=== PATIENT | male | born 1935 | race Two or more races ===

== ENCOUNTER 2020-06-08 14:41 | Inpatient (IN) | payer MEDICARE, OTHER ==
[~2020-06-08] VITALS: Ht 182.9 cm; Wt 76.7 kg
--- NOTE | 2020-06-08 14:47 | Emergency Room Report ---
History of Present Illness General Chief Complaint: Altered Level of Consciousness Source: Patient Present Illness HPI Disclaimer: Please note that this report is being documented using DRAGON technology. This can lead to erroneous entry secondary to incorrect interpretation by the dictating instrument. HPI: 84-year-old male presents for evaluation of altered mental status. Patient arrives by EMS. They state he has a history of stage IV colon cancer unknown treatment. Laying in the backyard today and was difficult to arouse by family. EMS stated he could not be awakened with painful stimuli. On transfer he was given approximately 200 cc IV fluids and then woke up. He is only saying his name. Cannot provide any other information. Moving all extremities. PMH: Colon cancer PSH: Could not obtain from patient Allergies: Could not obtain from patient Social Hx: Could not obtain from patient Allergies: Coded Allergies: No Known Allergies (Unverified , 06/08/20) COVID-19 Screening Contact w/high risk pt: No Experienced COVID-19 symptoms?: No COVID-19 Testing performed OPAL MINER: No Nursing Documentation-PMH Past Medical History: No History, Except For Review of Systems All Other Systems: negative except mentioned in HPI Physical Exam Vital Signs Date Time Temp Pulse Resp B/P (MAP) Pulse Ox O2 Delivery O2 Flow Rate FiO2 06/08/20 14:37 98.6 78 22 85/20 (41) 96 Room Air General: Awake, confused, oriented to self HEENT: NC/AT. EOMI. dry mucous membranes Cardiovascular: RRR. S1 and S2 normal. No murmur appreciated Resp: Normal work of breathing. No cough, wheezing or crackles appreciated Abdomen: Abdomen is soft, nondistended. Nontender Skin: Intact. Bruising over the left shoulder, appears old. Blistering over the left ear consistent with a sunburn. No vesicles. No crusting MSK: Normal tone and bulk. Moving all extremities. No obvious deformity. Neuro: Awake, oriented x1, moving all extremities Medical Decision Making Diagnostic Impression: Primary Impression: Altered level of consciousness Additional Impressions: Anemia Fever ER Course 84-year-old male with history of colon cancer presents for evaluation of altered mental status and difficult to arouse. Patient is now awake though only telling us his name. He is confused though moving all extremities. No external signs of trauma appreciated. The bruising on his left arm appears to be from administration of medications and multiple IVs. Differential includes was not limited to intracranial bleed, cranial mass, seizure, heat exhaustion, heat stroke, electrolyte abnormality, dehydration, sepsis, encephalopathy, toxicologic among others. Stat CT head was sent but does not show intracranial mass or injury. EKG shows sinus arrhythmia and PACs. White count and lactate are elevated. Patient received Zosyn. Questionable infiltrate right lower lobe. Nonischemic EKG. Critically low hemoglobin at 6.6. Will arrange for transfusion. Chemistry otherwise within normal limits. Lactate improved with IV fluids. Mentation returned to baseline, he is now awake and alert. Tox screen negative, urinalysis unremarkable. D-dimer positive. No PE by CTA but pulmonary nodules are found. No pneumonia identified. Daughter is now present and states the patient has required transfusions for anemia in the past. He is in hospice for treatment of his cancer but she states she would want resuscitative efforts performed during his hospital stay. The patient admitted to panel physician, Dr. Pal. Sepsis reevaluation: I, Dr. Lev Sutherland, reevaluated the patient Capillary refill: Less than 2 seconds MAP: 67 Heart rate: 100 Respiratory rate: 16 Initial Lactate: 2.5 Repeat Lactate: 2.2 Pressors: Not indicated at this time No signs of fluid overload Laboratory Tests Test 06/08/20 15:00 06/08/20 16:25 White Blood Count 17.4 K/UL (4.8-10.8) H Red Blood Count 3.59 M/UL (4.70-6.10) L Hemoglobin 6.6 G/DL (14.2-18.0) *L Hematocrit 24.3 % (42.0-52.0) L Mean Corpuscular Volume 68 FL (80-99) L Mean Corpuscular Hemoglobin 18.4 PG (27.0-31.0) L Mean Corpuscular Hemoglobin Concent 27.1 G/DL (32.0-36.0) L Red Cell Distribution Width 15.9 % (11.6-14.8) H Platelet Count 396 K/UL (150-450) Mean Platelet Volume 5.0 FL (6.5-10.1) L Neutrophils (%) (Auto) % (45.0-75.0) Lymphocytes (%) (Auto) % (20.0-45.0) Monocytes (%) (Auto) % (1.0-10.0) Eosinophils (%) (Auto) % (0.0-3.0) Basophils (%) (Auto) % (0.0-2.0) Differential Total Cells Counted 100 Neutrophils % (Manual) 83 % (45-75) H Lymphocytes % (Manual) 9 % (20-45) L Monocytes % (Manual) 6 % (1-10) Eosinophils % (Manual) 1 % (0-3) Basophils % (Manual) 0 % (0-2) Metamyelocytes % 1 % (0-0) H Band Neutrophils 0 % (0-8) Platelet Estimate Adequate Platelet Morphology Normal Hypochromasia 3+ Anisocytosis 1+ Microcytosis 1+ Prothrombin Time 11.6 SEC (9.30-11.50) H Prothrombin Time INR 1.1 (0.9-1.1) Activated Partial Thromboplast Time 19 SEC (23-33) L D-Dimer 1.71 mg/L FEU (0.00-0.49) H Sodium Level 130 MMOL/L (136-145) L Potassium Level 4.2 MMOL/L (3.5-5.1) Chloride Level 99 MMOL/L (98-107) Carbon Dioxide Level 22 MMOL/L (21-32) Anion Gap 9 mmol/L (5-15) Blood Urea Nitrogen 11 mg/dL (7-18) Creatinine 1.1 MG/DL (0.55-1.30) Estimated Glomerular Filtration Rate > 60 mL/min (>60) Glucose Level 135 MG/DL (74-106) H Lactic Acid Level 2.50 mmol/L (0.4-2.0) H 2.20 mmol/L (0.66-2.22) Calcium Level 7.7 MG/DL (8.5-10.1) L Phosphorus Level 2.5 MG/DL (2.5-4.9) Magnesium Level 2.0 MG/DL (1.8-2.4) Ferritin 7 NG/ML (8-388) L Total Bilirubin 1.0 MG/DL (0.2-1.0) Aspartate Amino Transferase (AST) 17 U/L (15-37) Alanine Aminotransferase (ALT) 14 U/L (12-78) Alkaline Phosphatase 108 U/L (46-116) Lactate Dehydrogenase 163 U/L (81-234) Total Creatine Kinase 50 U/L (26-308) Creatine Kinase MB 2.2 NG/ML (0.0-3.6) Creatine Kinase MB Relative Index 4.4 Troponin I 0.011 ng/mL (0.000-0.056) C-Reactive Protein, Quantitative 3.5 mg/dL (0.00-0.90) H Pro-B-Type Natriuretic Peptide 565 pg/mL (0-125) H Total Protein 6.6 G/DL (6.4-8.2) Albumin 2.4 G/DL (3.4-5.0) L Globulin 4.2 g/dL Albumin/Globulin Ratio 0.6 (1.0-2.7) L Lipase 85 U/L (73-393) Serum Alcohol < 3 mg/dL Urine Color Yellow Urine Appearance Slightly cloudy Urine pH 6.5 (4.5-8.0) Urine Specific [place] 1.010 (1.005-1.035) Urine Protein 1+ (NEGATIVE) H Urine Glucose (UA) Negative (NEGATIVE) Urine Ketones Negative (NEGATIVE) Urine Blood 3+ (NEGATIVE) H Urine Nitrite Negative (NEGATIVE) Urine Bilirubin Negative (NEGATIVE) Urine Urobilinogen Normal MG/DL (0.0-1.0) Urine Leukocyte Esterase 1+ (NEGATIVE) H Urine RBC 2-4 /HPF (0 - 0) H Urine WBC 2-4 /HPF (0 - 0) Urine Squamous Epithelial Cells None /LPF (NONE/OCC) Urine Bacteria Few /HPF (NONE) Urine Opiates Screen Negative (NEGATIVE) Urine Barbiturates Screen Negative (NEGATIVE) Phencyclidine (PCP) Screen Negative (NEGATIVE) Urine Amphetamines Screen Negative (NEGATIVE) Urine Benzodiazepines Screen Negative (NEGATIVE) Urine Cocaine Screen Negative (NEGATIVE) Urine Marijuana (THC) Screen Negative (NEGATIVE) Microbiology Date/Time Source Procedure Growth Status 06/08/20 15:00 Nasopharynx SARS-CoV-2 RdRp Gene Assay - Final Complete EKG Diagnostic Results Troponin ordered: Yes When was troponin ordered?: Jun 08, 2020 EKG Time: 15:17 Rate: tachycardiac Rhythm: NSR ST Segments: no acute changes Other Impression Sinus rhythm, normal axis, normal intervals, QTC 428 ms, multiple PACs and sinus arrhythmia Rhythm Strip Diag. Results Rhythm Strip Time: 15:17 EP Interpretation: yes Rate: 100 Rhythm: no PVC's, other - Premature atrial complexes and sinus arrhythmia Chest X-Ray Diagnostic Results Chest X-Ray Diagnostic Results : Chest X-Ray Ordered: Yes # of Views/Limited/Complete: 1 View Indication: Other - Altered mental status EP Interpretation: Yes Interpretation: no effusion, no pneumothorax, other - Possible consolidation right lower lobe Impression: Other - Early infiltrate versus edema right lower lobe Electronically Signed by: Electronically signed by Dr. Lev Sutherland MD Last Vital Signs Date Time Temp Pulse Resp B/P (MAP) Pulse Ox O2 Delivery O2 Flow Rate FiO2 06/08/20 14:37 98.6 78 22 85/20 (41) 96 Room Air Disposition: ADMITTED INPATIENT Condition: Serious Lev Sutherland MD Jun 08, 2020 14:47
[2020-06-08 15:04] VITALS: BP 85/20
[2020-06-08 15:26] LABS: INR 1.1 (0.9-1.1)
[2020-06-08 15:27] LABS: HEMATOCRIT 24.3 % (42.0-52.0); MEAN CORPUSCULAR VOLUME 68 FL (80-99); PLATELET COUNT 396 K/UL (150-450); RED BLOOD COUNT 3.59 M/UL (4.70-6.10); RED CELL DISTRIBUTION WIDTH 15.9 % (11.6-14.8); WHITE BLOOD COUNT 17.4 K/UL (4.8-10.8)
[2020-06-08 15:37] LABS: ANION GAP 9 mmol/L (5-15); BLOOD UREA NITROGEN 11 mg/dL (7-18); CALCIUM 7.7 MG/DL (8.5-10.1); CARBON DIOXIDE 22 MMOL/L (21-32); CHLORIDE 99 MMOL/L (98-107); CREATININE 1.1 MG/DL (0.55-1.30); POTASSIUM 4.2 MMOL/L (3.5-5.1); SODIUM 130 MMOL/L (136-145)
[2020-06-08 15:42] LABS: HEMOGLOBIN 6.6 G/DL (14.2-18.0)
[2020-06-08] MEDS ORDERED: LEVOTHYROXINE125 MCG ORAL (15:43)
[2020-06-08] MEDS ORDERED: HYDROMORPHO PO (15:43)
[2020-06-08] MEDS ORDERED: Omnipaque 350 100ml vial INJ PRN (15:45)
[2020-06-08] MEDS ORDERED: Piperacillin/Tazobactam 3.375 GM in NS 110 ML IVPB ONE (15:45)
--- NOTE | 2020-06-08 15:47 | Diagnostic Imaging Report ---
EXAM: CT Head Without Intravenous Contrast CLINICAL HISTORY: MASS TECHNIQUE: Axial computed tomography images of the head/brain without intravenous contrast. CTDI is 53.4 mGy and DLP is 1074.0 mGy-cm. One or more of the following dose reduction techniques were used: automated exposure control, adjustment of the mA and/or kV according to patient size, use of iterative reconstruction technique. COMPARISON: No relevant prior studies available. FINDINGS: Brain: No acute intracranial hemorrhage, large hypodensity, or significant mass effect. Nonspecific areas of hypoattenuation in the periventricular white matter likely represent the sequela of chronic small vessel ischemic disease. Ventricles: Ventricular and sulcal prominence commensurate with the patient's age. Bones/joints: No acute abnormality. Soft tissues: No significant abnormality. Sinuses: No significant abnormality. Mastoid air cells: No significant abnormality. IMPRESSION: No acute intracranial abnormality. No mass. MRI of the brain with and without contrast would be more sensitive to evaluate for an intracranial mass.
[2020-06-08 15:52] LABS: ALANINE AMINOTRANSFERASE 14 U/L (12-78); ALBUMIN 2.4 G/DL (3.4-5.0); ALBUMIN/GLOBULIN RATIO 0.6 (1.0-2.7); ALKALINE PHOSPHATASE 108 U/L (46-116); ASPARTATE AMINO TRANSFERASE 17 U/L (15-37); CKMB 2.2 NG/ML (0.0-3.6); CREATINE KINASE 50 U/L (26-308); FERRITIN 7 NG/ML (8-388); LACTATE DEHYDROGENASE 163 U/L (81-234); PHOSPHORUS 2.5 MG/DL (2.5-4.9)
[2020-06-08 16:00] VITALS: BP 117/58
[2020-06-08] MEDS ORDERED: Acetaminophen 500mg (ES) tab ORAL ONE (16:00)
--- NOTE | 2020-06-08 16:13 | Diagnostic Imaging Report ---
EXAM: XR Chest, 1 View CLINICAL HISTORY: AMS TECHNIQUE: Frontal view of the chest. COMPARISON: No relevant prior studies available. FINDINGS: Lungs: Hypoventilatory lungs. Nonspecific bibasilar opacities. Pleural space: . No significant pleural effusions or pneumothorax. Heart: No significant abnormality. No cardiomegaly. Mediastinum: No significant abnormality. Bones/joints: No acute osseous abnormality. IMPRESSION: Hypoventilatory lungs. Nonspecific bibasilar opacities may represent atelectasis or an infectious or inflammatory process. No significant pleural effusions or pneumothorax.
[2020-06-08 16:44] LABS: BILIRUBIN, URINE NEGATIVE (NEGATIVE); COLOR,URINE YELLOW; GLUCOSE, URINE (UA) NEGATIVE (NEGATIVE); KETONES,URINE NEGATIVE (NEGATIVE); LEUKOCYTE ESTERASE ,URINE 1+ (NEGATIVE); NITRITE,URINE NEGATIVE (NEGATIVE); PH,URINE 6.5 (4.5-8.0); PROTEIN,URINE 1+ (NEGATIVE); UROBILINOGEN,URINE NORMAL MG/DL (0.0-1.0)
[2020-06-08 16:55] LABS: APPEARANCE,URINE SLIGHTLY CLOUDY
[2020-06-08 16:57] VITALS: BP 125/47
--- NOTE | 2020-06-08 17:35 | Diagnostic Imaging Report ---
EXAM: CT Angiography Chest With Intravenous Contrast CLINICAL HISTORY: AMS TECHNIQUE: Axial computed tomographic angiography images of the chest with intravenous contrast. CTDI is 34.2 mGy and DLP is 246.1 mGy-cm. One or more of the following dose reduction techniques were used: automated exposure control, adjustment of the mA and/or kV according to patient size, use of iterative reconstruction technique. MIP reconstructed images were created and reviewed. COMPARISON: No relevant prior studies available. FINDINGS: Artifacts: Motion. Pulmonary arteries: No pulmonary embolism. Aorta: Aortic atherosclerosis. No thoracic aortic aneurysm or dissection. Lungs: Bilateral emphysematous changes and mild peribronchial thickening. 1.5 cm pleural-based nodule in the anterior liver left upper lobe. 1.9 cm pleural-based cavitary nodule in the right lower lobe. Pleural space: No significant abnormality. No significant effusion. No pneumothorax. Heart: No cardiomegaly. No significant pericardial effusion. Bones/joints: No acute fracture. Soft tissues: No significant abnormality. Lymph nodes: No significant abnormality. No enlarged lymph nodes. IMPRESSION: 1. Indeterminate bilateral pleural-based nodules measuring up to 1.9 cm in the right lower lobe. Fleischner Society Guidelines for low-risk patients recommend follow-up chest CT at 3-6 months. If unchanged consider an additional follow-up CT at 18-24 months. For high-risk patients (smoking history or other known risk factors) initial follow-up chest CT at 3-6 months and if unchanged, 18-24 months. 2. No pulmonary embolus.
[2020-06-08 18:47] VITALS: BP 122/50
--- NOTE | 2020-06-08 19:15 | Cardiac Electrophysiology PN ---
Subjective Subjective Patient seen in ER and [facility] ER MD Consult dictated Objective Last 24 Hour Vital Signs Date Time Temp Pulse Resp B/P (MAP) Pulse Ox O2 Delivery O2 Flow Rate FiO2 06/08/20 18:47 98.8 97 21 122/50 99 Room Air 06/08/20 16:57 98.8 97 21 125/47 99 Room Air 06/08/20 16:55 98.8 06/08/20 16:00 100.5 110 22 117/58 99 Room Air 06/08/20 15:08 78 22 Room Air 06/08/20 15:04 100.5 22 85/20 96 Room Air 06/08/20 14:37 98.6 78 22 85/20 (41) 96 Room Air Laboratory Tests Test 06/08/20 15:00 06/08/20 16:25 White Blood Count 17.4 K/UL (4.8-10.8) H Red Blood Count 3.59 M/UL (4.70-6.10) L Hemoglobin 6.6 G/DL (14.2-18.0) *L Hematocrit 24.3 % (42.0-52.0) L Mean Corpuscular Volume 68 FL (80-99) L Mean Corpuscular Hemoglobin 18.4 PG (27.0-31.0) L Mean Corpuscular Hemoglobin Concent 27.1 G/DL (32.0-36.0) L Red Cell Distribution Width 15.9 % (11.6-14.8) H Platelet Count 396 K/UL (150-450) Mean Platelet Volume 5.0 FL (6.5-10.1) L Neutrophils (%) (Auto) % (45.0-75.0) Lymphocytes (%) (Auto) % (20.0-45.0) Monocytes (%) (Auto) % (1.0-10.0) Eosinophils (%) (Auto) % (0.0-3.0) Basophils (%) (Auto) % (0.0-2.0) Differential Total Cells Counted 100 Neutrophils % (Manual) 83 % (45-75) H Lymphocytes % (Manual) 9 % (20-45) L Monocytes % (Manual) 6 % (1-10) Eosinophils % (Manual) 1 % (0-3) Basophils % (Manual) 0 % (0-2) Metamyelocytes % 1 % (0-0) H Band Neutrophils 0 % (0-8) Platelet Estimate Adequate Platelet Morphology Normal Hypochromasia 3+ Anisocytosis 1+ Microcytosis 1+ Prothrombin Time 11.6 SEC (9.30-11.50) H Prothromb Time International Ratio 1.1 (0.9-1.1) Activated Partial Thromboplast Time 19 SEC (23-33) L D-Dimer 1.71 mg/L FEU (0.00-0.49) H Sodium Level 130 MMOL/L (136-145) L Potassium Level 4.2 MMOL/L (3.5-5.1) Chloride Level 99 MMOL/L (98-107) Carbon Dioxide Level 22 MMOL/L (21-32) Anion Gap 9 mmol/L (5-15) Blood Urea Nitrogen 11 mg/dL (7-18) Creatinine 1.1 MG/DL (0.55-1.30) Estimat Glomerular Filtration Rate > 60 mL/min (>60) Glucose Level 135 MG/DL (74-106) H Lactic Acid Level 2.50 mmol/L (0.4-2.0) H 2.20 mmol/L (0.66-2.22) Calcium Level 7.7 MG/DL (8.5-10.1) L Phosphorus Level 2.5 MG/DL (2.5-4.9) Magnesium Level 2.0 MG/DL (1.8-2.4) Ferritin 7 NG/ML (8-388) L Total Bilirubin 1.0 MG/DL (0.2-1.0) Aspartate Amino Transf (AST/SGOT) 17 U/L (15-37) Alanine Aminotransferase (ALT/SGPT) 14 U/L (12-78) Alkaline Phosphatase 108 U/L (46-116) Lactate Dehydrogenase 163 U/L (81-234) Total Creatine Kinase 50 U/L (26-308) Creatine Kinase MB 2.2 NG/ML (0.0-3.6) Creatine Kinase MB Relative Index 4.4 Troponin I 0.011 ng/mL (0.000-0.056) C-Reactive Protein, Quantitative 3.5 mg/dL (0.00-0.90) H Pro-B-Type Natriuretic Peptide 565 pg/mL (0-125) H Total Protein 6.6 G/DL (6.4-8.2) Albumin 2.4 G/DL (3.4-5.0) L Globulin 4.2 g/dL Albumin/Globulin Ratio 0.6 (1.0-2.7) L Lipase 85 U/L (73-393) Serum Alcohol < 3 mg/dL Urine Color Yellow Urine Appearance Slightly cloudy Urine pH 6.5 (4.5-8.0) Urine Specific [place] 1.010 (1.005-1.035) Urine Protein 1+ (NEGATIVE) H Urine Glucose (UA) Negative (NEGATIVE) Urine Ketones Negative (NEGATIVE) Urine Blood 3+ (NEGATIVE) H Urine Nitrite Negative (NEGATIVE) Urine Bilirubin Negative (NEGATIVE) Urine Urobilinogen Normal MG/DL (0.0-1.0) Urine Leukocyte Esterase 1+ (NEGATIVE) H Urine RBC 2-4 /HPF (0 - 0) H Urine WBC 2-4 /HPF (0 - 0) Urine Squamous Epithelial Cells None /LPF (NONE/OCC) Urine Bacteria Few /HPF (NONE) Urine Opiates Screen Negative (NEGATIVE) Urine Barbiturates Screen Negative (NEGATIVE) Phencyclidine (PCP) Screen Negative (NEGATIVE) Urine Amphetamines Screen Negative (NEGATIVE) Urine Benzodiazepines Screen Negative (NEGATIVE) Urine Cocaine Screen Negative (NEGATIVE) Urine Marijuana (THC) Screen Negative (NEGATIVE) Microbiology Date/Time Source Procedure Growth Status 06/08/20 15:00 Nasopharynx SARS-CoV-2 RdRp Gene Assay - Final Complete Frank Gilbert MD Jun 08, 2020 19:15
[2020-06-08 20:25] VITALS: BP 131/50
--- NOTE | 2020-06-08 21:00 | Consultation ---
DATE OF CONSULTATION: 06/08/2020 CARDIOLOGY CONSULTATION CONSULTING PHYSICIAN: Frank Gilbert MD REFERRING PHYSICIAN: Veronica Pal MD REASON FOR CONSULTATION: Hypotension. HISTORY OF PRESENT ILLNESS: Patient is an 84-year-old gentleman with history of stage IV colon cancer, but unknown treatment, was brought to the emergency room for altered mental status. Patient currently was lying in the backyard and was difficult to arouse by the family. EMS could not awaken the patient with painful stimuli. On transfer, patient received 20 mL normal saline and he woke up. Patient initially was confused, but gradually improved. At the time of my evaluation, patient is in the emergency room. He is alert and oriented x3 and is getting blood transfusion for his profound anemia. His blood pressure in the ER was 85/20 with a pulse of 78. REVIEW OF SYSTEMS: Negative other than what was mentioned in history of present illness. PAST MEDICAL HISTORY: As mentioned above. FAMILY HISTORY: Noncontributory. SOCIAL HISTORY: He lives at home with the family. PHYSICAL EXAMINATION: VITAL SIGNS: Blood pressure is 100/60, pulse is 90, respirations 18, and he is afebrile. HEAD AND NECK: Showed no JVD. LUNGS: Clear. CARDIOVASCULAR: Shows regular S1 and S2 with no gallop or murmur. ABDOMEN: Soft. EXTREMITIES: No pitting edema. LABORATORY AND DIAGNOSTIC DATA: His labs show white count of 17.4. His EKG showed sinus rhythm with nonspecific ST-T wave abnormalities. ASSESSMENT AND PLAN: 1. Hypotension, likely due to profound anemia. Patient already getting blood transfusion. Patient was also started on IV antibiotic. Patient may need pressors if the blood pressure does not get better after IV fluids as well as blood transfusion. 2. History of colon cancer and anemia. Patient will have colon surgery. His treatment is not clear at this point. 3. Nonspecific ST-T wave abnormality. We will completely rule out HI protocol and get an echocardiogram for further evaluation and management. Thank you very much, Dr. Pal, for allowing me to participate in the care of this patient. Please do not hesitate to contact me for any questions regarding my evaluation. The case was discussed with the emergency room physician as well. Frank Gilbert M.D. DR: EMORY JOB#: [id number] CC:
[2020-06-08] MEDS ORDERED: Acetaminophen 500mg (ES) tab ORAL PRN (23:45)
[2020-06-09] VITALS: BP 140/74
[2020-06-09 04:00] VITALS: BP 117/78
[2020-06-09] MEDS: Levothyroxine 125mcg tab ORAL SCH (05:48)
[2020-06-09 05:52] LABS: HEMATOCRIT 28.1 % (42.0-52.0); HEMOGLOBIN 7.9 G/DL (14.2-18.0); MEAN CORPUSCULAR VOLUME 70 FL (80-99); PLATELET COUNT 374 K/UL (150-450); RED CELL DISTRIBUTION WIDTH 18.5 % (11.6-14.8); WHITE BLOOD COUNT 11.8 K/UL (4.8-10.8)
[2020-06-09 06:41] LABS: ALANINE AMINOTRANSFERASE 29 U/L (12-78); ALBUMIN 2.2 G/DL (3.4-5.0); ALBUMIN/GLOBULIN RATIO 0.5 (1.0-2.7); ALKALINE PHOSPHATASE 107 U/L (46-116); ANION GAP 6 mmol/L (5-15); ASPARTATE AMINO TRANSFERASE 50 U/L (15-37); BILIRUBIN,TOTAL 0.7 MG/DL (0.2-1.0); BLOOD UREA NITROGEN 12 mg/dL (7-18); CALCIUM 7.6 MG/DL (8.5-10.1); CARBON DIOXIDE 26 MMOL/L (21-32); CHLORIDE 101 MMOL/L (98-107); CREATININE 0.9 MG/DL (0.55-1.30); POTASSIUM 3.5 MMOL/L (3.5-5.1); SODIUM 133 MMOL/L (136-145)
--- NOTE | 2020-06-09 06:57 | Consultation ---
History of Present Illness General Chief Complaint: Altered Level of Consciousness Present Illness Allergies: Coded Allergies: No Known Allergies (Unverified , 06/08/20) Medication History Scheduled Levothyroxine Sodium* (Levothyroxine Sodium*), 137 MCG ORAL DAILY, (Reported) Miscellaneous Medications Hydromorphone HCl/Pf (Hydromorphone 4 mg/ml Vial), 4 MG PO, (Reported) Patient History Healthcare decision maker N Resuscitation status Advanced Directive on File Physical Exam Last 24 Hour Vital Signs Date Time Temp Pulse Resp B/P (MAP) Pulse Ox O2 Delivery O2 Flow Rate FiO2 06/09/20 04:00 Room Air 06/09/20 04:00 96.8 78 18 117/78 (91) 98 06/09/20 04:00 103 06/09/20 00:00 97.0 83 18 140/74 (96) 98 06/09/20 00:00 109 06/09/20 00:00 2.0 06/09/20 00:00 Room Air 06/08/20 21:00 Room Air 06/08/20 20:25 98.2 98 16 131/50 (77) 100 06/08/20 20:23 98.8 97 21 122/50 99 Room Air 06/08/20 18:47 98.8 97 21 122/50 99 Room Air 06/08/20 16:57 98.8 97 21 125/47 99 Room Air 06/08/20 16:55 98.8 06/08/20 16:00 100.5 110 22 117/58 99 Room Air 06/08/20 15:08 78 22 Room Air 06/08/20 15:04 100.5 22 85/20 96 Room Air 06/08/20 14:37 98.6 78 22 85/20 (41) 96 Room Air Intake and Output 06/08/20 06/09/20 19:00 07:00 Intake Total 120 ml 620 ml Output Total 600 ml Balance 120 ml 20 ml Intake Oral 120 ml 620 ml Output Urine Total 600 ml # Bowel Movements 1 Laboratory Tests Test 06/08/20 15:00 06/08/20 16:25 06/09/20 03:48 White Blood Count 17.4 K/UL (4.8-10.8) H 11.8 K/UL (4.8-10.8) H Red Blood Count 3.59 M/UL (4.70-6.10) L 4.00 M/UL (4.70-6.10) L Hemoglobin 6.6 G/DL (14.2-18.0) *L 7.9 G/DL (14.2-18.0) L Hematocrit 24.3 % (42.0-52.0) L 28.1 % (42.0-52.0) L Mean Corpuscular Volume 68 FL (80-99) L 70 FL (80-99) L Mean Corpuscular Hemoglobin 18.4 PG (27.0-31.0) L 19.9 PG (27.0-31.0) L Mean Corpuscular Hemoglobin Concent 27.1 G/DL (32.0-36.0) L 28.3 G/DL (32.0-36.0) L Red Cell Distribution Width 15.9 % (11.6-14.8) H 18.5 % (11.6-14.8) H Platelet Count 396 K/UL (150-450) 374 K/UL (150-450) Mean Platelet Volume 5.0 FL (6.5-10.1) L 5.0 FL (6.5-10.1) L Neutrophils (%) (Auto) % (45.0-75.0) % (45.0-75.0) Lymphocytes (%) (Auto) % (20.0-45.0) % (20.0-45.0) Monocytes (%) (Auto) % (1.0-10.0) % (1.0-10.0) Eosinophils (%) (Auto) % (0.0-3.0) % (0.0-3.0) Basophils (%) (Auto) % (0.0-2.0) % (0.0-2.0) Differential Total Cells Counted 100 Neutrophils % (Manual) 83 % (45-75) H Pending Lymphocytes % (Manual) 9 % (20-45) L Pending Monocytes % (Manual) 6 % (1-10) Eosinophils % (Manual) 1 % (0-3) Basophils % (Manual) 0 % (0-2) Metamyelocytes % 1 % (0-0) H Band Neutrophils 0 % (0-8) Platelet Estimate Adequate Pending Platelet Morphology Normal Pending Hypochromasia 3+ Anisocytosis 1+ Microcytosis 1+ Prothrombin Time 11.6 SEC (9.30-11.50) H Prothromb Time International Ratio 1.1 (0.9-1.1) Activated Partial Thromboplast Time 19 SEC (23-33) L D-Dimer 1.71 mg/L FEU (0.00-0.49) H Sodium Level 130 MMOL/L (136-145) L 133 MMOL/L (136-145) L Potassium Level 4.2 MMOL/L (3.5-5.1) 3.5 MMOL/L (3.5-5.1) Chloride Level 99 MMOL/L (98-107) 101 MMOL/L (98-107) Carbon Dioxide Level 22 MMOL/L (21-32) 26 MMOL/L (21-32) Anion Gap 9 mmol/L (5-15) 6 mmol/L (5-15) Blood Urea Nitrogen 11 mg/dL (7-18) 12 mg/dL (7-18) Creatinine 1.1 MG/DL (0.55-1.30) 0.9 MG/DL (0.55-1.30) Estimat Glomerular Filtration Rate > 60 mL/min (>60) > 60 mL/min (>60) Glucose Level 135 MG/DL (74-106) H 136 MG/DL (74-106) H Lactic Acid Level 2.50 mmol/L (0.4-2.0) H 2.20 mmol/L (0.66-2.22) Calcium Level 7.7 MG/DL (8.5-10.1) L 7.6 MG/DL (8.5-10.1) L Phosphorus Level 2.5 MG/DL (2.5-4.9) Magnesium Level 2.0 MG/DL (1.8-2.4) Ferritin 7 NG/ML (8-388) L Total Bilirubin 1.0 MG/DL (0.2-1.0) 0.7 MG/DL (0.2-1.0) Aspartate Amino Transf (AST/SGOT) 17 U/L (15-37) 50 U/L (15-37) H Alanine Aminotransferase (ALT/SGPT) 14 U/L (12-78) 29 U/L (12-78) Alkaline Phosphatase 108 U/L (46-116) 107 U/L (46-116) Lactate Dehydrogenase 163 U/L (81-234) Total Creatine Kinase 50 U/L (26-308) Creatine Kinase MB 2.2 NG/ML (0.0-3.6) Creatine Kinase MB Relative Index 4.4 Troponin I 0.011 ng/mL (0.000-0.056) 0.085 ng/mL (0.000-0.056) C-Reactive Protein, Quantitative 3.5 mg/dL (0.00-0.90) H Pro-B-Type Natriuretic Peptide 565 pg/mL (0-125) H 928 pg/mL (0-125) H Total Protein 6.6 G/DL (6.4-8.2) 6.3 G/DL (6.4-8.2) L Albumin 2.4 G/DL (3.4-5.0) L 2.2 G/DL (3.4-5.0) L Globulin 4.2 g/dL 4.1 g/dL Albumin/Globulin Ratio 0.6 (1.0-2.7) L 0.5 (1.0-2.7) L Lipase 85 U/L (73-393) Serum Alcohol < 3 mg/dL Urine Color Yellow Urine Appearance Slightly cloudy Urine pH 6.5 (4.5-8.0) Urine Specific [place] 1.010 (1.005-1.035) Urine Protein 1+ (NEGATIVE) H Urine Glucose (UA) Negative (NEGATIVE) Urine Ketones Negative (NEGATIVE) Urine Blood 3+ (NEGATIVE) H Urine Nitrite Negative (NEGATIVE) Urine Bilirubin Negative (NEGATIVE) Urine Urobilinogen Normal MG/DL (0.0-1.0) Urine Leukocyte Esterase 1+ (NEGATIVE) H Urine RBC 2-4 /HPF (0 - 0) H Urine WBC 2-4 /HPF (0 - 0) Urine Squamous Epithelial Cells None /LPF (NONE/OCC) Urine Bacteria Few /HPF (NONE) Urine Opiates Screen Negative (NEGATIVE) Urine Barbiturates Screen Negative (NEGATIVE) Phencyclidine (PCP) Screen Negative (NEGATIVE) Urine Amphetamines Screen Negative (NEGATIVE) Urine Benzodiazepines Screen Negative (NEGATIVE) Urine Cocaine Screen Negative (NEGATIVE) Urine Marijuana (THC) Screen Negative (NEGATIVE) Thyroid Stimulating Hormone (TSH) < 0.010 uiU/mL (0.358-3.740) Free Thyroxine 1.51 NG/DL (0.76-1.46) H Microbiology Date/Time Source Procedure Growth Status 06/08/20 15:00 Nasopharynx SARS-CoV-2 RdRp Gene Assay - Final Complete Height (Feet): 6 Height (Inches): 1.00 Weight (Pounds): 169 Medications Current Medications Medications (Trade) Dose Ordered Sig/[place] Route PRN Reason Start Time Stop Time Status Last Admin Dose Admin Acetaminophen (Tylenol) 500 mg Q4H PRN ORAL Mild Pain (Pain Scale 1-3) 06/08/20 23:45 07/08/20 23:44 Iohexol (Omnipaque 350 100ml) 100 ml NOW PRN INJ Radiology Procedure 06/08/20 15:45 06/10/20 15:44 Levothyroxine Sodium (Synthroid) 125 mcg DAILY@0630 ORAL 06/09/20 06:30 07/09/20 06:29 06/09/20 05:48 Assessment/Plan Assessment/Plan: Hematology Consultation REQ MD: Veronica Wetzel RFC: Malignancy eval DOS: 06/09/2020 HPI: 84-year-old male presents for evaluation of altered mental status. Patient arrives by EMS. They state he has a history of stage IV colon cancer unknown treatment. Laying in the backyard today and was difficult to arouse by family. EMS stated he could not be awakened with painful stimuli. On transfer he was given approximately 200 cc IV fluids and then woke up. He is only saying his name. Cannot provide any other information. Moving all extremities. Seen by cardiology, recs noted, cea ordered, he does not want treatment for cancer at this time. 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 EOMI. dry mucous membranes Cardiovascular: RRR. S1 and S2 normal. No murmur appreciated Resp: Normal work of breathing. No cough, wheezing or crackles appreciated Abdomen: Abdomen is soft, nondistended. Nontender Skin: Intact. Bruising over the left shoulder, appears old. Blistering over the left ear consistent with a sunburn MSK: Normal tone and bulk. Moving all extremities. No obvious deformity. Neuro: Awake, oriented x1, moving all extremities Labs; noted Meds: reviewed Assessment and Recs # Stage IV colon cancer -- I talked with him 06/09 and he is aware of diagnosis but does not want any treatment --> aware of risks and detriment of not getting treatmet for a disease that has potentially 24-30month survival --> is aware of above, cea ordered # Indeterminate bilateral pleural-based nodules measuring up to 1.9 cm in the right lower lobe. --> may be related to above malignancy --> hold off significant workup # Anemia likely due to gi bleed v from neoplasm --> anemia panel order prn --> transfuse as needed --> hgb 6.6-->7.9 # Altered level of consciousness --> r.o underlying infection --> ct brain noted --> neuro recs # Questionable infiltrate rll, with Fever -> r/o infection --> abx Appreciate consultation and dw Froilan Rodriguez MD Jun 09, 2020 06:57
[2020-06-09 08:00] VITALS: BP 129/70
--- NOTE | 2020-06-09 11:21 | Cardiac Electrophysiology PN ---
Assessment/Plan Assessment/Plan 1. Hypotension, likely due to profound anemia. Got blood transfusion. Patient was also started on IV antibiotic. Off aspirin. Add Toprol 25 daily 2. Anemia with Hb 6.6 and Stage IV colon cancer . He is aware of diagnosis but does not want any treatment Never had colon surgery.FU Dr Ewing 3. NSTEMI with elevated troponin and Nonspecific ST-T wave abnormality. Could be due to demand ischemia in view of Hb 6.6. No CP. Subjective Subjective Alert in NAD.No CP or SOB Objective Last 24 Hour Vital Signs Date Time Temp Pulse Resp B/P (MAP) Pulse Ox O2 Delivery O2 Flow Rate FiO2 06/09/20 04:00 Room Air 06/09/20 04:00 96.8 78 18 117/78 (91) 98 06/09/20 04:00 103 06/09/20 00:00 97.0 83 18 140/74 (96) 98 06/09/20 00:00 109 06/09/20 00:00 2.0 06/09/20 00:00 Room Air 06/08/20 21:00 Room Air 06/08/20 20:25 98.2 98 16 131/50 (77) 100 06/08/20 20:23 98.8 97 21 122/50 99 Room Air 06/08/20 18:47 98.8 97 21 122/50 99 Room Air 06/08/20 16:57 98.8 97 21 125/47 99 Room Air 06/08/20 16:55 98.8 06/08/20 16:00 100.5 110 22 117/58 99 Room Air 06/08/20 15:08 78 22 Room Air 06/08/20 15:04 100.5 22 85/20 96 Room Air 06/08/20 14:37 98.6 78 22 85/20 (41) 96 Room Air Intake and Output 06/08/20 06/09/20 19:00 07:00 Intake Total 120 ml 620 ml Output Total 600 ml Balance 120 ml 20 ml Intake Oral 120 ml 620 ml Output Urine Total 600 ml # Bowel Movements 1 Laboratory Tests Test 06/08/20 15:00 06/08/20 16:25 06/09/20 03:48 White Blood Count 17.4 K/UL (4.8-10.8) H 11.8 K/UL (4.8-10.8) H Red Blood Count 3.59 M/UL (4.70-6.10) L 4.00 M/UL (4.70-6.10) L Hemoglobin 6.6 G/DL (14.2-18.0) *L 7.9 G/DL (14.2-18.0) L Hematocrit 24.3 % (42.0-52.0) L 28.1 % (42.0-52.0) L Mean Corpuscular Volume 68 FL (80-99) L 70 FL (80-99) L Mean Corpuscular Hemoglobin 18.4 PG (27.0-31.0) L 19.9 PG (27.0-31.0) L Mean Corpuscular Hemoglobin Concent 27.1 G/DL (32.0-36.0) L 28.3 G/DL (32.0-36.0) L Red Cell Distribution Width 15.9 % (11.6-14.8) H 18.5 % (11.6-14.8) H Platelet Count 396 K/UL (150-450) 374 K/UL (150-450) Mean Platelet Volume 5.0 FL (6.5-10.1) L 5.0 FL (6.5-10.1) L Neutrophils (%) (Auto) % (45.0-75.0) % (45.0-75.0) Lymphocytes (%) (Auto) % (20.0-45.0) % (20.0-45.0) Monocytes (%) (Auto) % (1.0-10.0) % (1.0-10.0) Eosinophils (%) (Auto) % (0.0-3.0) % (0.0-3.0) Basophils (%) (Auto) % (0.0-2.0) % (0.0-2.0) Differential Total Cells Counted 100 100 Neutrophils % (Manual) 83 % (45-75) H 71 % (45-75) Lymphocytes % (Manual) 9 % (20-45) L 17 % (20-45) L Monocytes % (Manual) 6 % (1-10) 11 % (1-10) H Eosinophils % (Manual) 1 % (0-3) 1 % (0-3) Basophils % (Manual) 0 % (0-2) 0 % (0-2) Metamyelocytes % 1 % (0-0) H Band Neutrophils 0 % (0-8) 0 % (0-8) Platelet Estimate Adequate Adequate Platelet Morphology Normal Normal Hypochromasia 3+ 2+ Anisocytosis 1+ 2+ Microcytosis 1+ 1+ Prothrombin Time 11.6 SEC (9.30-11.50) H Prothromb Time International Ratio 1.1 (0.9-1.1) Activated Partial Thromboplast Time 19 SEC (23-33) L D-Dimer 1.71 mg/L FEU (0.00-0.49) H Sodium Level 130 MMOL/L (136-145) L 133 MMOL/L (136-145) L Potassium Level 4.2 MMOL/L (3.5-5.1) 3.5 MMOL/L (3.5-5.1) Chloride Level 99 MMOL/L (98-107) 101 MMOL/L (98-107) Carbon Dioxide Level 22 MMOL/L (21-32) 26 MMOL/L (21-32) Anion Gap 9 mmol/L (5-15) 6 mmol/L (5-15) Blood Urea Nitrogen 11 mg/dL (7-18) 12 mg/dL (7-18) Creatinine 1.1 MG/DL (0.55-1.30) 0.9 MG/DL (0.55-1.30) Estimat Glomerular Filtration Rate > 60 mL/min (>60) > 60 mL/min (>60) Glucose Level 135 MG/DL (74-106) H 136 MG/DL (74-106) H Lactic Acid Level 2.50 mmol/L (0.4-2.0) H 2.20 mmol/L (0.66-2.22) Calcium Level 7.7 MG/DL (8.5-10.1) L 7.6 MG/DL (8.5-10.1) L Phosphorus Level 2.5 MG/DL (2.5-4.9) Magnesium Level 2.0 MG/DL (1.8-2.4) Ferritin 7 NG/ML (8-388) L Total Bilirubin 1.0 MG/DL (0.2-1.0) 0.7 MG/DL (0.2-1.0) Aspartate Amino Transf (AST/SGOT) 17 U/L (15-37) 50 U/L (15-37) H Alanine Aminotransferase (ALT/SGPT) 14 U/L (12-78) 29 U/L (12-78) Alkaline Phosphatase 108 U/L (46-116) 107 U/L (46-116) Lactate Dehydrogenase 163 U/L (81-234) Total Creatine Kinase 50 U/L (26-308) Creatine Kinase MB 2.2 NG/ML (0.0-3.6) Creatine Kinase MB Relative Index 4.4 Troponin I 0.011 ng/mL (0.000-0.056) 0.085 ng/mL (0.000-0.056) C-Reactive Protein, Quantitative 3.5 mg/dL (0.00-0.90) H Pro-B-Type Natriuretic Peptide 565 pg/mL (0-125) H 928 pg/mL (0-125) H Total Protein 6.6 G/DL (6.4-8.2) 6.3 G/DL (6.4-8.2) L Albumin 2.4 G/DL (3.4-5.0) L 2.2 G/DL (3.4-5.0) L Globulin 4.2 g/dL 4.1 g/dL Albumin/Globulin Ratio 0.6 (1.0-2.7) L 0.5 (1.0-2.7) L Lipase 85 U/L (73-393) Serum Alcohol < 3 mg/dL Urine Color Yellow Urine Appearance Slightly cloudy Urine pH 6.5 (4.5-8.0) Urine Specific [place] 1.010 (1.005-1.035) Urine Protein 1+ (NEGATIVE) H Urine Glucose (UA) Negative (NEGATIVE) Urine Ketones Negative (NEGATIVE) Urine Blood 3+ (NEGATIVE) H Urine Nitrite Negative (NEGATIVE) Urine Bilirubin Negative (NEGATIVE) Urine Urobilinogen Normal MG/DL (0.0-1.0) Urine Leukocyte Esterase 1+ (NEGATIVE) H Urine RBC 2-4 /HPF (0 - 0) H Urine WBC 2-4 /HPF (0 - 0) Urine Squamous Epithelial Cells None /LPF (NONE/OCC) Urine Bacteria Few /HPF (NONE) Urine Opiates Screen Negative (NEGATIVE) Urine Barbiturates Screen Negative (NEGATIVE) Phencyclidine (PCP) Screen Negative (NEGATIVE) Urine Amphetamines Screen Negative (NEGATIVE) Urine Benzodiazepines Screen Negative (NEGATIVE) Urine Cocaine Screen Negative (NEGATIVE) Urine Marijuana (THC) Screen Negative (NEGATIVE) Polychromasia 1+ Carcinoembryonic Antigen Pending Thyroid Stimulating Hormone (TSH) < 0.010 uiU/mL (0.358-3.740) Free Thyroxine 1.51 NG/DL (0.76-1.46) H Microbiology Date/Time Source Procedure Growth Status 06/08/20 15:00 Nasopharynx SARS-CoV-2 RdRp Gene Assay - Final Complete Objective HEAD AND NECK: Showed no JVD. LUNGS: Clear. CARDIOVASCULAR: Shows regular S1 and S2 with no gallop or murmur. ABDOMEN: Soft. EXTREMITIES: No pitting edema. Frank Gilbert MD Jun 09, 2020 11:20
--- NOTE | 2020-06-09 11:59 | Cardiac Electrophysiology PN ---
Assessment/Plan Assessment/Plan 1. Hypotension, likely due to profound anemia. Got blood transfusion. Patient was also started on IV antibiotic. Off aspirin. BP better 2. Atrial fib with RVR. Add Toprol 25 daily 3. Anemia with Hb 6.6 and Stage IV colon cancer . He is aware of diagnosis but does not want any treatment Never had colon surgery.FU Dr Ewing 4. NSTEMI with elevated troponin and Nonspecific ST-T wave abnormality. Could be due to demand ischemia in view of Hb 6.6. No CP. On Toprol 25 daily Subjective Subjective Alert in NAD.No CP or SOB. Was in atrial fib with RVR earlier Objective Last 24 Hour Vital Signs Date Time Temp Pulse Resp B/P (MAP) Pulse Ox O2 Delivery O2 Flow Rate FiO2 06/09/20 08:53 133 06/09/20 08:00 Room Air 06/09/20 08:00 95 06/09/20 08:00 97.2 70 18 129/70 (89) 99 06/09/20 04:00 Room Air 06/09/20 04:00 96.8 78 18 117/78 (91) 98 06/09/20 04:00 103 06/09/20 00:00 97.0 83 18 140/74 (96) 98 06/09/20 00:00 109 06/09/20 00:00 2.0 06/09/20 00:00 Room Air 06/08/20 21:00 Room Air 06/08/20 20:25 98.2 98 16 131/50 (77) 100 06/08/20 20:23 98.8 97 21 122/50 99 Room Air 06/08/20 18:47 98.8 97 21 122/50 99 Room Air 06/08/20 16:57 98.8 97 21 125/47 99 Room Air 06/08/20 16:55 98.8 06/08/20 16:00 100.5 110 22 117/58 99 Room Air 06/08/20 15:08 78 22 Room Air 06/08/20 15:04 100.5 22 85/20 96 Room Air 06/08/20 14:37 98.6 78 22 85/20 (41) 96 Room Air Intake and Output 06/08/20 06/09/20 19:00 07:00 Intake Total 120 ml 620 ml Output Total 600 ml Balance 120 ml 20 ml Intake Oral 120 ml 620 ml Output Urine Total 600 ml # Bowel Movements 1 Laboratory Tests Test 06/08/20 15:00 06/08/20 16:25 06/09/20 03:48 White Blood Count 17.4 K/UL (4.8-10.8) H 11.8 K/UL (4.8-10.8) H Red Blood Count 3.59 M/UL (4.70-6.10) L 4.00 M/UL (4.70-6.10) L Hemoglobin 6.6 G/DL (14.2-18.0) *L 7.9 G/DL (14.2-18.0) L Hematocrit 24.3 % (42.0-52.0) L 28.1 % (42.0-52.0) L Mean Corpuscular Volume 68 FL (80-99) L 70 FL (80-99) L Mean Corpuscular Hemoglobin 18.4 PG (27.0-31.0) L 19.9 PG (27.0-31.0) L Mean Corpuscular Hemoglobin Concent 27.1 G/DL (32.0-36.0) L 28.3 G/DL (32.0-36.0) L Red Cell Distribution Width 15.9 % (11.6-14.8) H 18.5 % (11.6-14.8) H Platelet Count 396 K/UL (150-450) 374 K/UL (150-450) Mean Platelet Volume 5.0 FL (6.5-10.1) L 5.0 FL (6.5-10.1) L Neutrophils (%) (Auto) % (45.0-75.0) % (45.0-75.0) Lymphocytes (%) (Auto) % (20.0-45.0) % (20.0-45.0) Monocytes (%) (Auto) % (1.0-10.0) % (1.0-10.0) Eosinophils (%) (Auto) % (0.0-3.0) % (0.0-3.0) Basophils (%) (Auto) % (0.0-2.0) % (0.0-2.0) Differential Total Cells Counted 100 100 Neutrophils % (Manual) 83 % (45-75) H 71 % (45-75) Lymphocytes % (Manual) 9 % (20-45) L 17 % (20-45) L Monocytes % (Manual) 6 % (1-10) 11 % (1-10) H Eosinophils % (Manual) 1 % (0-3) 1 % (0-3) Basophils % (Manual) 0 % (0-2) 0 % (0-2) Metamyelocytes % 1 % (0-0) H Band Neutrophils 0 % (0-8) 0 % (0-8) Platelet Estimate Adequate Adequate Platelet Morphology Normal Normal Hypochromasia 3+ 2+ Anisocytosis 1+ 2+ Microcytosis 1+ 1+ Prothrombin Time 11.6 SEC (9.30-11.50) H Prothromb Time International Ratio 1.1 (0.9-1.1) Activated Partial Thromboplast Time 19 SEC (23-33) L D-Dimer 1.71 mg/L FEU (0.00-0.49) H Sodium Level 130 MMOL/L (136-145) L 133 MMOL/L (136-145) L Potassium Level 4.2 MMOL/L (3.5-5.1) 3.5 MMOL/L (3.5-5.1) Chloride Level 99 MMOL/L (98-107) 101 MMOL/L (98-107) Carbon Dioxide Level 22 MMOL/L (21-32) 26 MMOL/L (21-32) Anion Gap 9 mmol/L (5-15) 6 mmol/L (5-15) Blood Urea Nitrogen 11 mg/dL (7-18) 12 mg/dL (7-18) Creatinine 1.1 MG/DL (0.55-1.30) 0.9 MG/DL (0.55-1.30) Estimat Glomerular Filtration Rate > 60 mL/min (>60) > 60 mL/min (>60) Glucose Level 135 MG/DL (74-106) H 136 MG/DL (74-106) H Lactic Acid Level 2.50 mmol/L (0.4-2.0) H 2.20 mmol/L (0.66-2.22) Calcium Level 7.7 MG/DL (8.5-10.1) L 7.6 MG/DL (8.5-10.1) L Phosphorus Level 2.5 MG/DL (2.5-4.9) Magnesium Level 2.0 MG/DL (1.8-2.4) Ferritin 7 NG/ML (8-388) L Total Bilirubin 1.0 MG/DL (0.2-1.0) 0.7 MG/DL (0.2-1.0) Aspartate Amino Transf (AST/SGOT) 17 U/L (15-37) 50 U/L (15-37) H Alanine Aminotransferase (ALT/SGPT) 14 U/L (12-78) 29 U/L (12-78) Alkaline Phosphatase 108 U/L (46-116) 107 U/L (46-116) Lactate Dehydrogenase 163 U/L (81-234) Total Creatine Kinase 50 U/L (26-308) Creatine Kinase MB 2.2 NG/ML (0.0-3.6) Creatine Kinase MB Relative Index 4.4 Troponin I 0.011 ng/mL (0.000-0.056) 0.085 ng/mL (0.000-0.056) C-Reactive Protein, Quantitative 3.5 mg/dL (0.00-0.90) H Pro-B-Type Natriuretic Peptide 565 pg/mL (0-125) H 928 pg/mL (0-125) H Total Protein 6.6 G/DL (6.4-8.2) 6.3 G/DL (6.4-8.2) L Albumin 2.4 G/DL (3.4-5.0) L 2.2 G/DL (3.4-5.0) L Globulin 4.2 g/dL 4.1 g/dL Albumin/Globulin Ratio 0.6 (1.0-2.7) L 0.5 (1.0-2.7) L Lipase 85 U/L (73-393) Serum Alcohol < 3 mg/dL Urine Color Yellow Urine Appearance Slightly cloudy Urine pH 6.5 (4.5-8.0) Urine Specific [place] 1.010 (1.005-1.035) Urine Protein 1+ (NEGATIVE) H Urine Glucose (UA) Negative (NEGATIVE) Urine Ketones Negative (NEGATIVE) Urine Blood 3+ (NEGATIVE) H Urine Nitrite Negative (NEGATIVE) Urine Bilirubin Negative (NEGATIVE) Urine Urobilinogen Normal MG/DL (0.0-1.0) Urine Leukocyte Esterase 1+ (NEGATIVE) H Urine RBC 2-4 /HPF (0 - 0) H Urine WBC 2-4 /HPF (0 - 0) Urine Squamous Epithelial Cells None /LPF (NONE/OCC) Urine Bacteria Few /HPF (NONE) Urine Opiates Screen Negative (NEGATIVE) Urine Barbiturates Screen Negative (NEGATIVE) Phencyclidine (PCP) Screen Negative (NEGATIVE) Urine Amphetamines Screen Negative (NEGATIVE) Urine Benzodiazepines Screen Negative (NEGATIVE) Urine Cocaine Screen Negative (NEGATIVE) Urine Marijuana (THC) Screen Negative (NEGATIVE) Polychromasia 1+ Carcinoembryonic Antigen Pending Thyroid Stimulating Hormone (TSH) < 0.010 uiU/mL (0.358-3.740) Free Thyroxine 1.51 NG/DL (0.76-1.46) H Microbiology Date/Time Source Procedure Growth Status 06/08/20 15:00 Nasopharynx SARS-CoV-2 RdRp Gene Assay - Final Complete Objective HEAD AND NECK: Showed no JVD. LUNGS: Clear. CARDIOVASCULAR: Shows regular S1 and S2 with no gallop or murmur. ABDOMEN: Soft. EXTREMITIES: No pitting edema. Frank Gilbert MD Jun 09, 2020 11:59
[2020-06-09 12:00] VITALS: BP 127/79
--- NOTE | 2020-06-09 12:29 | Consultation ---
DATE OF CONSULTATION: 06/09/2020 PULMONARY CONSULTATION CONSULTING PHYSICIAN: Mukund Velazquez MD. HISTORY OF PRESENT ILLNESS: This is an 84-year-old male with history of advanced colon carcinoma. He was brought to the emergency room yesterday with complaints of altered mental status. The patient was confused on arrival, however, gradually has improved. He has not been found to be hypoxic and his imaging studies including a chest CT reviewed, which shows bilateral lower lobe nodules, particularly on the right side. There was no pulmonary embolism. There was evidence of emphysematous changes as well. At this point, the patient states he is feeling better. PAST MEDICAL HISTORY: Notable for colon carcinoma. REVIEW OF SYSTEMS: Denies any headaches, hematemesis, melena, hematochezia, night sweats, or weight loss. MEDICATIONS: His list of current medications include Tylenol and Zosyn as well as Synthroid. PHYSICAL EXAMINATION: GENERAL: Reveals an 84-year-old male. VITAL SIGNS: Blood pressure is 115/60, heart rate 94, respirations 18. O2 saturation 98% on room air. T-max 100.5 yesterday. HEENT: Unremarkable. LUNGS: Clear breath sounds bilaterally. ABDOMEN: Soft. EXTREMITIES: There is no edema. NEUROLOGIC: Nonfocal. LABORATORY DATA: Lab testing shows hemoglobin 6.6, this morning of 7.9 after transfusion. White count initial was 17,000, now 11.8. Platelet count is normal. Chemistries are notable for sodium 133. Troponin 0.08. Glucose 136. Lactic acid 2.5. Coags show D-dimer 1.7. Toxicology is negative. Urinalysis shows few pus cells. IMPRESSION: 1. Anemia. 2. Altered mental status. 3. Colon carcinoma. 4. Leukocytosis. 5. Emphysema. 6. Pulmonary nodules. DISCUSSION: The patient is doing well at this time post transfusion. Agree with broad spectrum antibiotics. Currently, his pulmonary nodules do not require a workup and as per the Fleischner guidelines will need serial imaging studies. These may represent either nodules or metastasis from his stage IV colon cancer. Agree with transfusion, hydration, and antibiotics. We will follow. Mukund Velazquez M.D. DR: JIM JOB#: [id number] CC:
[2020-06-09] MEDS: cefTRIAXone 1 GM in D5W 55 ML IVPB SCH (14:57)
[2020-06-09 16:00] VITALS: BP 125/60
--- NOTE | 2020-06-09 16:14 | Consultation ---
DATE OF CONSULTATION: 06/09/2020 INFECTIOUS DISEASE CONSULTATION CONSULTING PHYSICIAN: Eddie Monsivais MD PRIMARY ATTENDING: Veronica Pal MD REASON FOR CONSULTATION: Sepsis / inflammatory response syndrome. HISTORY OF PRESENT ILLNESS: This is an 84-year-old male admitted yesterday from home with altered mental status. Patient was found lying in the backyard, was difficult to arouse. Patient's condition improved after receiving normal saline. He was anemic with hemoglobin of 6.6. Had leukocytosis of 17.4 and fever of 100.5 and earlier was hypotensive. PAST MEDICAL HISTORY: Colon cancer stage IV, anemia, hypothyroidism. ALLERGIES: No known drug allergies. MEDICATIONS: Getting metoprolol, levothyroxine. Got a dose of Zosyn, Tylenol. SOCIAL HISTORY: . Lives at home. Denies alcohol, drug abuse, or smoking. REVIEW OF SYSTEMS: Has no fever, no chills at the present time. States feels something is stuck in the throat after eating, spitting. No coughing. No shortness of breath. No dysuria. PHYSICAL EXAMINATION: VITAL SIGNS: Temperature is 97.2, pulse 133, blood pressure 129/70. GENERAL APPEARANCE: Seems to have normal weight. HEAD AND NECK: Has no teeth. HEART: Tachycardic. LUNGS: Clear. ABDOMEN: Soft, nontender. EXTREMITIES: Has no edema. NEUROLOGIC: He is awake, alert. Hard of hearing. LABORATORY DATA: COVID test is negative. UA showed leukocyte esterase 1+. Sodium 133, potassium 3.5, chloride 101, bicarb 26, BUN 12, creatinine 0.9, glucose 136. Lactic acid was 2.5 at the time of admission that improved to 2.2. Albumin is 2.2. Troponin is slightly elevated at 0.085. Urine toxicology was negative. WBC today is 11.9, hemoglobin 7.9, hematocrit 28.1, platelets 374. IMPRESSION: Sepsis or systemic inflammatory response syndrome with fever, leukocytosis, and hypotension. Has lactic acidosis. Has severe anemia. Has colon cancer stage IV. Has emphysema on CT scan of chest and pulmonary nodule. Has hypothyroidism. Acidosis has resolved. RECOMMENDATION: Patient will be started on ceftriaxone. We will follow up the cultures and try to adjust antibiotic soon. At the end of my exam, I thank Dr. Pal for involving me in the care of this patient. Eddie Monsivais M.D. DR: JESS JOB#: [id number] CC: VALENTIN
[2020-06-09 20:00] VITALS: BP 135/72
--- NOTE | 2020-06-09 23:44 | History and Physical Report ---
DATE OF ADMISSION: 06/08/2020 HISTORY OF PRESENT ILLNESS: Patient is relatively poor historian. Comes in with altered mental status. Has history of colon cancer, unknown treatment. Chest x-ray showed pneumonia. The patient was initially difficult to arouse. He is more alert now. Initially when he was in the backyard of the family, they could not arouse him. He is febrile and also has leukocytosis. Also has severe anemia. He was also admitted for transfusion. Patient also had elevated lactic acidosis and D-dimer was also elevated. Chest x-ray showed pneumonia. No pulmonary embolism, but he did have fine pulmonary nodules consistent with his cancer. Daughter tells us that he has been anemic for the past and requires transfusion dependent. Also has some blistering rash on the neck and not itching and not really painful just uncomfortable. Does not look like shingles. Looks somewhat like blisters from a burn. COVID according to ER doctor is negative. Patient denies shortness of breath. Denies nausea, vomiting, or diarrhea. Denies fever or chills. Patient really is still confused, cannot give any reliable history. PAST MEDICAL HISTORY: Possible cancer of unknown origin, hypothyroidism, possible history of colon cancer. MEDICATIONS: Levoxyl. FAMILY HISTORY: Noncontributory. SOCIAL HISTORY: Does have history of smoking. Denies history of alcohol abuse, history of drug abuse. ALLERGIES: No known allergies. REVIEW OF SYSTEMS: HEENT: Denies headaches. RESPIRATORY: Denies shortness of breath. Denies cough. CARDIOVASCULAR: Denies chest pain. GASTROINTESTINAL: Denies nausea, vomiting, or diarrhea. EXTREMITIES: Denies extremity pain. CENTRAL NERVOUS SYSTEM: Denies change in speech pattern. PHYSICAL EXAMINATION: VITAL SIGNS: Temperature is 97.2, pulse 70, blood pressure 129/70. HEENT: PERRLA. NECK: Supple. No lymphadenopathy. CHEST: Clear to auscultation. CARDIOVASCULAR: Regular rate and rhythm. No murmurs or extra sounds. GASTROINTESTINAL: Soft, nontender, nondistended. No organomegaly. EXTREMITIES: No edema. Moves all four extremities. Sensory intact to light touch. Reflexes in both sides. Moves all four extremities. Dorsal pedis pulses are present. NEUROLOGIC: Oriented x2. LABORATORY DATA: WBC of 17.4, hemoglobin 6.6, platelets 396. Sodium 133, potassium 3.5, BUN of 12, creatinine 0.6. COVID negative. ASSESSMENT AND PLAN: Pneumonia, severe anemia, possible colon cancer, altered mental status, fever, leukocytosis rule out sepsis. I have consulted Dr. Froilan Estrada, Dr. Mukund Velazquez, Dr. Eddie Monsivais, Dr. Gilbert for the tachycardia and for above-mentioned abnormal symptoms and findings and abnormal imaging. Antibiotics if any per Dr. Eddie Monsivais. Veronica Pal M.D. DR: ALDO JOB#: [id number] CC:
[2020-06-10] VITALS: BP 133/80
[2020-06-10 04:00] VITALS: BP 117/71
[2020-06-10] MEDS: Levothyroxine 125mcg tab ORAL SCH (05:57)
--- NOTE | 2020-06-10 06:41 | Hematology/Onc Progress Note ---
Assessment/Plan Assessment/Plan Assessment and Recs # Stage IV colon cancer -- I talked with him 06/09 and he is aware of diagnosis but does not want any treatment --> aware of risks and detriment of not getting treatmet for a disease that has potentially 24-30month survival --> is aware of above, cea ordered # Indeterminate bilateral pleural-based nodules measuring up to 1.9 cm in the right lower lobe. --> may be related to above malignancy --> hold off significant workup # Anemia likely due to gi bleed v from neoplasm --> anemia panel order prn --> transfuse as needed --> hgb 6.6-->7.9 # Altered level of consciousness --> r.o underlying infection --> ct brain noted --> neuro recs # Questionable infiltrate rll, with Fever -> r/o infection --> abx # Elev ddimer --> duplex neg, as is cta Appreciate consultation and russel RN Subjective HEENT: Denies: no symptoms, eye pain, blurred vision, tearing, double vision, ear pain, ear discharge, nose pain, nose congestion, throat pain, throat swelling, mouth pain, mouth swelling, other Cardiovascular: Denies: no symptoms, chest pain, edema, irregular heart rate, lightheadedness, palpitations, syncope, other Respiratory: Denies: no symptoms, cough, shortness of breath, SOB with excertion, SOB at rest, sputum, wheezing, other Gastrointestinal/Abdominal: Denies: no symptoms, abdomen distended, abdominal pain, black stools, tarry stools, blood in stool, constipated, diarrhea, difficulty swallowing, nausea, poor appetite, poor fluid intake, rectal bleeding, vomiting, other Neurologic/Psychiatric: Denies: no symptoms, anxiety, depressed, emotional problems, headache, numbness, paresthesia, pre-existing deficit, seizure, tingling, tremors, weakness, other Endocrine: Denies: no symptoms, excessive sweating, flushing, intolerance to cold, intolerance to heat, increased hunger, increased thirst, increased urine, unexplained weight gain, unexplained weight loss, other Hematologic/Lymphatic: Denies: no symptoms, anemia, easy bleeding, easy bruising, adenopathy, other Allergies: Coded Allergies: No Known Allergies (Unverified , 06/08/20) Subjective 06/10 meds noted, no bleeding, labs reviewed, no night sweats, cbc pending Objective Objective Current Medications Medications (Trade) Dose Ordered Sig/Urvashi Route PRN Reason Start Time Stop Time Status Last Admin Dose Admin Acetaminophen (Tylenol) 500 mg Q4H PRN ORAL Mild Pain (Pain Scale 1-3) 06/08/20 23:45 07/08/20 23:44 Ceftriaxone Sodium 1 gm/ Dextrose 55 ml @ 110 mls/hr Q24H IVPB 06/09/20 15:00 06/16/20 14:59 06/09/20 14:57 Iohexol (Omnipaque 350 100ml) 100 ml NOW PRN INJ Radiology Procedure 06/08/20 15:45 06/10/20 15:44 Levothyroxine Sodium (Synthroid) 125 mcg DAILY@0630 ORAL 06/09/20 06:30 07/09/20 06:29 06/10/20 05:57 Metoprolol Succinate (Toprol XL) 25 mg DAILY ORAL 06/10/20 09:00 09/08/20 08:59 Last 24 Hour Vital Signs Date Time Temp Pulse Resp B/P (MAP) Pulse Ox O2 Delivery O2 Flow Rate FiO2 06/10/20 04:00 105 06/10/20 04:00 98.1 105 16 117/71 (86) 99 06/10/20 02:38 163 06/10/20 00:00 97.9 96 18 133/80 (97) 100 06/10/20 00:00 100 06/09/20 21:00 Room Air 06/09/20 20:00 98.1 100 20 135/72 (93) 100 06/09/20 20:00 100 06/09/20 16:00 82 06/09/20 16:00 97.0 77 20 125/60 (81) 99 06/09/20 12:00 97.3 81 18 127/79 (95) 99 06/09/20 12:00 Room Air 06/09/20 12:00 94 06/09/20 08:53 133 06/09/20 08:00 Room Air 06/09/20 08:00 95 06/09/20 08:00 97.2 70 18 129/70 (89) 99 06/09/20 04:00 Room Air 06/09/20 04:00 96.8 78 18 117/78 (91) 98 06/09/20 04:00 103 06/09/20 00:00 97.0 83 18 140/74 (96) 98 06/09/20 00:00 109 06/09/20 00:00 2.0 06/09/20 00:00 Room Air 06/08/20 21:00 Room Air 06/08/20 20:25 98.2 98 16 131/50 (77) 100 06/08/20 20:23 98.8 97 21 122/50 99 Room Air 06/08/20 18:47 98.8 97 21 122/50 99 Room Air 06/08/20 16:57 98.8 97 21 125/47 99 Room Air 06/08/20 16:55 98.8 06/08/20 16:00 100.5 110 22 117/58 99 Room Air 06/08/20 15:08 78 22 Room Air 06/08/20 15:04 100.5 22 85/20 96 Room Air 06/08/20 14:37 98.6 78 22 85/20 (41) 96 Room Air Intake and Output 06/09/20 06/10/20 19:00 07:00 Intake Total 120 ml 800 ml Balance 120 ml 800 ml Intake Oral 120 ml 800 ml # Voids 1 5 # Bowel Movements 1 4 Labs Test 06/08/20 15:00 06/08/20 16:25 06/09/20 03:48 White Blood Count 17.4 K/UL (4.8-10.8) 11.8 K/UL (4.8-10.8) Red Blood Count 3.59 M/UL (4.70-6.10) 4.00 M/UL (4.70-6.10) Hemoglobin 6.6 G/DL (14.2-18.0) 7.9 G/DL (14.2-18.0) Hematocrit 24.3 % (42.0-52.0) 28.1 % (42.0-52.0) Mean Corpuscular Volume 68 FL (80-99) 70 FL (80-99) Mean Corpuscular Hemoglobin 18.4 PG (27.0-31.0) 19.9 PG (27.0-31.0) Mean Corpuscular Hemoglobin Concent 27.1 G/DL (32.0-36.0) 28.3 G/DL (32.0-36.0) Red Cell Distribution Width 15.9 % (11.6-14.8) 18.5 % (11.6-14.8) Platelet Count 396 K/UL (150-450) 374 K/UL (150-450) Mean Platelet Volume 5.0 FL (6.5-10.1) 5.0 FL (6.5-10.1) Neutrophils (%) (Auto) % (45.0-75.0) % (45.0-75.0) Lymphocytes (%) (Auto) % (20.0-45.0) % (20.0-45.0) Monocytes (%) (Auto) % (1.0-10.0) % (1.0-10.0) Eosinophils (%) (Auto) % (0.0-3.0) % (0.0-3.0) Basophils (%) (Auto) % (0.0-2.0) % (0.0-2.0) Differential Total Cells Counted 100 100 Neutrophils % (Manual) 83 % (45-75) 71 % (45-75) Lymphocytes % (Manual) 9 % (20-45) 17 % (20-45) Monocytes % (Manual) 6 % (1-10) 11 % (1-10) Eosinophils % (Manual) 1 % (0-3) 1 % (0-3) Basophils % (Manual) 0 % (0-2) 0 % (0-2) Metamyelocytes % 1 % (0-0) Band Neutrophils 0 % (0-8) 0 % (0-8) Platelet Estimate Adequate Adequate Platelet Morphology Normal Normal Hypochromasia 3+ 2+ Anisocytosis 1+ 2+ Microcytosis 1+ 1+ Prothrombin Time 11.6 SEC (9.30-11.50) Prothromb Time International Ratio 1.1 (0.9-1.1) Activated Partial Thromboplast Time 19 SEC (23-33) D-Dimer 1.71 mg/L FEU (0.00-0.49) Sodium Level 130 MMOL/L (136-145) 133 MMOL/L (136-145) Potassium Level 4.2 MMOL/L (3.5-5.1) 3.5 MMOL/L (3.5-5.1) Chloride Level 99 MMOL/L (98-107) 101 MMOL/L (98-107) Carbon Dioxide Level 22 MMOL/L (21-32) 26 MMOL/L (21-32) Anion Gap 9 mmol/L (5-15) 6 mmol/L (5-15) Blood Urea Nitrogen 11 mg/dL (7-18) 12 mg/dL (7-18) Creatinine 1.1 MG/DL (0.55-1.30) 0.9 MG/DL (0.55-1.30) Estimat Glomerular Filtration Rate > 60 mL/min (>60) > 60 mL/min (>60) Glucose Level 135 MG/DL (74-106) 136 MG/DL (74-106) Lactic Acid Level 2.50 mmol/L (0.4-2.0) 2.20 mmol/L (0.66-2.22) Calcium Level 7.7 MG/DL (8.5-10.1) 7.6 MG/DL (8.5-10.1) Phosphorus Level 2.5 MG/DL (2.5-4.9) Magnesium Level 2.0 MG/DL (1.8-2.4) Ferritin 7 NG/ML (8-388) Total Bilirubin 1.0 MG/DL (0.2-1.0) 0.7 MG/DL (0.2-1.0) Aspartate Amino Transf (AST/SGOT) 17 U/L (15-37) 50 U/L (15-37) Alanine Aminotransferase (ALT/SGPT) 14 U/L (12-78) 29 U/L (12-78) Alkaline Phosphatase 108 U/L (46-116) 107 U/L (46-116) Lactate Dehydrogenase 163 U/L (81-234) Total Creatine Kinase 50 U/L (26-308) Creatine Kinase MB 2.2 NG/ML (0.0-3.6) Creatine Kinase MB Relative Index 4.4 Troponin I 0.011 ng/mL (0.000-0.056) 0.085 ng/mL (0.000-0.056) C-Reactive Protein, Quantitative 3.5 mg/dL (0.00-0.90) Pro-B-Type Natriuretic Peptide 565 pg/mL (0-125) 928 pg/mL (0-125) Total Protein 6.6 G/DL (6.4-8.2) 6.3 G/DL (6.4-8.2) Albumin 2.4 G/DL (3.4-5.0) 2.2 G/DL (3.4-5.0) Globulin 4.2 g/dL 4.1 g/dL Albumin/Globulin Ratio 0.6 (1.0-2.7) 0.5 (1.0-2.7) Lipase 85 U/L (73-393) Serum Alcohol < 3 mg/dL Urine Color Yellow Urine Appearance Slightly cloudy Urine pH 6.5 (4.5-8.0) Urine Specific Printer 1.010 (1.005-1.035) Urine Protein 1+ (NEGATIVE) Urine Glucose (UA) Negative (NEGATIVE) Urine Ketones Negative (NEGATIVE) Urine Blood 3+ (NEGATIVE) Urine Nitrite Negative (NEGATIVE) Urine Bilirubin Negative (NEGATIVE) Urine Urobilinogen Normal MG/DL (0.0-1.0) Urine Leukocyte Esterase 1+ (NEGATIVE) Urine RBC 2-4 /HPF (0 - 0) Urine WBC 2-4 /HPF (0 - 0) Urine Squamous Epithelial Cells None /LPF (NONE/OCC) Urine Bacteria Few /HPF (NONE) Urine Opiates Screen Negative (NEGATIVE) Urine Barbiturates Screen Negative (NEGATIVE) Phencyclidine (PCP) Screen Negative (NEGATIVE) Urine Amphetamines Screen Negative (NEGATIVE) Urine Benzodiazepines Screen Negative (NEGATIVE) Urine Cocaine Screen Negative (NEGATIVE) Urine Marijuana (THC) Screen Negative (NEGATIVE) Polychromasia 1+ Thyroid Stimulating Hormone (TSH) < 0.010 uiU/mL (0.358-3.740) Free Thyroxine 1.51 NG/DL (0.76-1.46) Height (Feet): 6 Height (Inches): 1.00 Weight (Pounds): 169 Objective Physical Exam General: Awake, confused, oriented to self HEENT: NC/AT. EOMI. dry mucous membranes Cardiovascular: RRR. S1 and S2 normal. No murmur appreciated Resp: Normal work of breathing. No cough, wheezing or crackles appreciated Abdomen: Abdomen is soft, nondistended. Nontender Skin: Intact. Bruising over the left shoulder, appears old. Blistering over the left ear consistent with a sunburn MSK: Normal tone and bulk. Moving all extremities. No obvious deformity. Neuro: Awake, oriented x1, moving all extremities Froilan Estrada MD Jun 10, 2020 06:41
--- NOTE | 2020-06-10 07:48 | Cardiac Electrophysiology PN ---
Assessment/Plan Assessment/Plan 1. Hypotension, likely due to profound anemia. Better after blood transfusion and on on IV antibiotic. 2. Atrial fib with RVR. Increase Lopressor to 25 bid and add Amiodarone 400 po bid 3. Anemia with Hb 6.6 and Stage IV colon cancer . He is aware of diagnosis but does not want any treatment Never had colon surgery.FU Dr Ewing 4. NSTEMI with elevated troponin and Nonspecific ST-T wave abnormality. Could be due to demand ischemia in view of Hb 6.6. No CP. On Toprol Subjective Subjective Alert in NAD.No CP or SOB. Was in atrial fib with RVR again despite adding Lopressor 25 daily Objective Last 24 Hour Vital Signs Date Time Temp Pulse Resp B/P (MAP) Pulse Ox O2 Delivery O2 Flow Rate FiO2 06/10/20 04:00 105 06/10/20 04:00 98.1 105 16 117/71 (86) 99 06/10/20 02:38 163 06/10/20 00:00 97.9 96 18 133/80 (97) 100 06/10/20 00:00 100 06/09/20 21:00 Room Air 06/09/20 20:00 98.1 100 20 135/72 (93) 100 06/09/20 20:00 100 06/09/20 16:00 82 06/09/20 16:00 97.0 77 20 125/60 (81) 99 06/09/20 12:00 97.3 81 18 127/79 (95) 99 06/09/20 12:00 Room Air 06/09/20 12:00 94 06/09/20 08:53 133 06/09/20 08:00 Room Air 06/09/20 08:00 95 06/09/20 08:00 97.2 70 18 129/70 (89) 99 Intake and Output 06/09/20 06/10/20 19:00 07:00 Intake Total 120 ml 800 ml Balance 120 ml 800 ml Intake Oral 120 ml 800 ml # Voids 1 5 # Bowel Movements 1 4 Microbiology Date/Time Source Procedure Growth Status 06/08/20 15:10 Blood Blood Culture - Preliminary NO GROWTH AFTER 24 HOURS Resulted 06/08/20 15:00 Nasopharynx SARS-CoV-2 RdRp Gene Assay - Final Complete 06/08/20 15:00 Blood Blood Culture - Preliminary NO GROWTH AFTER 24 HOURS Resulted Objective HEAD AND NECK: Showed no JVD. LUNGS: Clear. CARDIOVASCULAR: Shows regular S1 and S2 with no gallop or murmur. ABDOMEN: Soft. EXTREMITIES: No pitting edema. Frank Gilbert MD Jun 10, 2020 07:48
[2020-06-10 08:00] VITALS: BP_SYST 103; BP_SYST 130; BP_DIAS 61; BP_DIAS 67
[2020-06-10] MEDS ORDERED: Metoprolol Succinate XL 25mg tab ORAL SCH (09:00)
[2020-06-10] MEDS: Amiodarone 200mg tab ORAL SCH ×2 (10:03→21:46)
--- NOTE | 2020-06-10 10:27 | Pulmonology Progress Note ---
Subjective Interval Events: None new Constitutional: Reports: no symptoms HEENT: Repors: no symptoms Respiratory: Reports: no symptoms Cardiovascular: Reports: no symptoms Gastrointestinal/Abdominal: Reports: no symptoms Genitourinary: Reports: no symptoms Allergies: Coded Allergies: No Known Allergies (Unverified , 06/08/20) Objective Last 24 Hour Vital Signs Date Time Temp Pulse Resp B/P (MAP) Pulse Ox O2 Delivery O2 Flow Rate FiO2 06/10/20 10:02 61 130/67 06/10/20 08:00 96.7 61 20 130/67 (88) 98 06/10/20 04:00 105 06/10/20 04:00 98.1 105 16 117/71 (86) 99 06/10/20 02:38 163 06/10/20 00:00 97.9 96 18 133/80 (97) 100 06/10/20 00:00 100 06/09/20 21:00 Room Air 06/09/20 20:00 98.1 100 20 135/72 (93) 100 06/09/20 20:00 100 06/09/20 16:00 82 06/09/20 16:00 97.0 77 20 125/60 (81) 99 06/09/20 12:00 97.3 81 18 127/79 (95) 99 06/09/20 12:00 Room Air 06/09/20 12:00 94 Intake and Output 06/09/20 06/10/20 19:00 07:00 Intake Total 120 ml 800 ml Balance 120 ml 800 ml Intake Oral 120 ml 800 ml # Voids 1 5 # Bowel Movements 1 4 General Appearance: no acute distress HEENT: normocephalic Respiratory: chest wall non-tender, lungs clear Cardiovascular: normal peripheral pulses, normal rate Abdomen: normal bowel sounds Microbiology Date/Time Source Procedure Growth Status 06/08/20 15:10 Blood Blood Culture - Preliminary NO GROWTH AFTER 24 HOURS Resulted 06/08/20 15:00 Nasopharynx SARS-CoV-2 RdRp Gene Assay - Final Complete 06/08/20 15:00 Blood Blood Culture - Preliminary NO GROWTH AFTER 24 HOURS Resulted Current Medications Medications (Trade) Dose Ordered Sig/Urvashi Route PRN Reason Start Time Stop Time Status Last Admin Dose Admin Acetaminophen (Tylenol) 500 mg Q4H PRN ORAL Mild Pain (Pain Scale 1-3) 06/08/20 23:45 07/08/20 23:44 Amiodarone HCl (Cordarone) 400 mg EVERY 12 HOURS ORAL 06/10/20 09:00 09/08/20 08:59 06/10/20 10:03 Ceftriaxone Sodium 1 gm/ Dextrose 55 ml @ 110 mls/hr Q24H IVPB 06/09/20 15:00 06/16/20 14:59 06/09/20 14:57 Iohexol (Omnipaque 350 100ml) 100 ml NOW PRN INJ Radiology Procedure 06/08/20 15:45 06/10/20 15:44 Levothyroxine Sodium (Synthroid) 125 mcg DAILY@0630 ORAL 06/09/20 06:30 07/09/20 06:29 06/10/20 05:57 Metoprolol Tartrate (Lopressor) 25 mg Q12HR ORAL 06/10/20 09:00 09/08/20 08:59 06/10/20 10:02 Assessment/Plan Assessment/Plan IMPRESSION: 1. Anemia. 2. Altered mental status. 3. Colon carcinoma. 4. Leukocytosis. 5. Emphysema. 6. Pulmonary nodules. DISCUSSION: The patient is doing well at this time post transfusion. Agree with broad spectrum antibiotics. Currently, his pulmonary nodules do not require a workup and as per the Fleischner guidelines He will need serial imaging studies. These nodules may represent either benign_ nodules or metastasis from his stage IV colon cancer. I will follow. Gustabo Costello Omar Syed MD Jun 10, 2020 10:27
[2020-06-10 12:00] VITALS: BP 133/83
--- NOTE | 2020-06-10 12:22 | Infectious Diseases Prog Note ---
Assessment/Plan Assessment/Plan IMPRESSION: Sepsis or systemic inflammatory response syndrome Neck blisters, ? cellulitis Leukocytosis, Resolved lactic acidosis. Severe anemia. Colon cancer stage IV. Emphysema Pulmonary nodule. Hypothyroidism. RECOMMENDATION: Continue ceftriaxone Add PO Doxycycline Wound culture was obtained Subjective ROS Limited/Unobtainable: No Constitutional: Reports: no symptoms Respiratory: Reports: no symptoms Cardiovascular: Reports: no symptoms Gastrointestinal/Abdominal: Reports: no symptoms Genitourinary: Reports: no symptoms Skin: Reports: other - blisters of neck Allergies: Coded Allergies: No Known Allergies (Unverified , 06/08/20) Objective Last 24 Hour Vital Signs Date Time Temp Pulse Resp B/P (MAP) Pulse Ox O2 Delivery O2 Flow Rate FiO2 06/10/20 10:02 61 130/67 06/10/20 08:00 96.7 61 20 130/67 (88) 98 06/10/20 08:00 134 06/10/20 04:00 105 06/10/20 04:00 98.1 105 16 117/71 (86) 99 06/10/20 02:38 163 06/10/20 00:00 97.9 96 18 133/80 (97) 100 06/10/20 00:00 100 06/09/20 21:00 Room Air 06/09/20 20:00 98.1 100 20 135/72 (93) 100 06/09/20 20:00 100 06/09/20 16:00 82 06/09/20 16:00 97.0 77 20 125/60 (81) 99 Height (Feet): 6 Height (Inches): 1.00 Weight (Pounds): 169 General Appearance: no acute distress HEENT: mucous membranes moist Respiratory/Chest: lungs clear Cardiovascular: normal rate Abdomen: soft, non tender Extremities: no edema Skin: other - multiple blister at back of neck Neurologic/Psychiatric: alert, responsive Microbiology Date/Time Source Procedure Growth Status 06/08/20 15:10 Blood Blood Culture - Preliminary NO GROWTH AFTER 24 HOURS Resulted 06/08/20 15:00 Nasopharynx SARS-CoV-2 RdRp Gene Assay - Final Complete 06/08/20 15:00 Blood Blood Culture - Preliminary NO GROWTH AFTER 24 HOURS Resulted Current Medications Medications (Trade) Dose Ordered Sig/Urvashi Route PRN Reason Start Time Stop Time Status Last Admin Dose Admin Acetaminophen (Tylenol) 500 mg Q4H PRN ORAL Mild Pain (Pain Scale 1-3) 06/08/20 23:45 07/08/20 23:44 Amiodarone HCl (Cordarone) 400 mg EVERY 12 HOURS ORAL 06/10/20 09:00 09/08/20 08:59 06/10/20 10:03 Ceftriaxone Sodium 1 gm/ Dextrose 55 ml @ 110 mls/hr Q24H IVPB 06/09/20 15:00 06/16/20 14:59 06/09/20 14:57 Iohexol (Omnipaque 350 100ml) 100 ml NOW PRN INJ Radiology Procedure 06/08/20 15:45 06/10/20 15:44 Levothyroxine Sodium (Synthroid) 125 mcg DAILY@0630 ORAL 06/09/20 06:30 07/09/20 06:29 06/10/20 05:57 Metoprolol Tartrate (Lopressor) 25 mg Q12HR ORAL 06/10/20 09:00 09/08/20 08:59 06/10/20 10:02 Eddie Monsivais MD Jun 10, 2020 12:22
[2020-06-10] MEDS ORDERED: Tubing IV Secondary IV ONE (14:29)
[2020-06-10] MEDS: cefTRIAXone 1 GM in D5W 55 ML IVPB SCH (14:39)
[2020-06-10 16:00] VITALS: BP 121/59
[2020-06-10 17:42] LABS: HEMOGLOBIN 7.5 G/DL (14.2-18.0); MEAN CORPUSCULAR VOLUME 65 FL (80-99); PLATELET COUNT 386 K/UL (150-450); RED BLOOD COUNT 3.85 M/UL (4.70-6.10); RED CELL DISTRIBUTION WIDTH 20.2 % (11.6-14.8); WHITE BLOOD COUNT 14.8 K/UL (4.8-10.8)
[2020-06-10] MEDS ORDERED: Acetaminophen 650mg/20.3ml ORAL PRN (17:45)
[2020-06-10 20:00] VITALS: BP 122/53
--- NOTE | 2020-06-10 21:08 | General Progress Note ---
Subjective ROS Limited/Unobtainable: Yes Allergies: Coded Allergies: No Known Allergies (Unverified , 06/08/20) Objective Last 24 Hour Vital Signs Date Time Temp Pulse Resp B/P (MAP) Pulse Ox O2 Delivery O2 Flow Rate FiO2 06/10/20 16:00 97.5 59 21 121/59 (79) 99 06/10/20 16:00 62 06/10/20 12:00 98.2 72 18 133/83 (100) 98 06/10/20 12:00 82 06/10/20 10:02 61 130/67 06/10/20 09:00 Room Air 06/10/20 08:00 98.1 70 19 103/61 (75) 98 06/10/20 08:00 134 06/10/20 04:00 105 06/10/20 04:00 98.1 105 16 117/71 (86) 99 06/10/20 02:38 163 06/10/20 00:00 97.9 96 18 133/80 (97) 100 06/10/20 00:00 100 Intake and Output 06/09/20 06/10/20 19:00 07:00 Intake Total 120 ml 800 ml Balance 120 ml 800 ml Intake Oral 120 ml 800 ml # Voids 1 5 # Bowel Movements 1 4 Laboratory Tests 06/10/20 16:30: White Blood Count 14.8H, Red Blood Count 3.85L, Hemoglobin 7.5L, Hematocrit 25.0L, Mean Corpuscular Volume 65L, Mean Corpuscular Hemoglobin 19.5L, Mean Corpuscular Hemoglobin Concent 30.0L, Red Cell Distribution Width 20.2H, Platelet Count 386, Mean Platelet Volume 5.6L, Neutrophils (%) (Auto) , Ly mphocytes (%) (Auto) , Monocytes (%) (Auto) , Eosinophils (%) (Auto) , Basophils (%) (Auto) , Differential Total Cells Counted 100, Neutrophils % (Manual) 74, Lymphocytes % (Manual) 16L, Monocytes % (Manual) 9, Eosinophils % (Manual) 1, Basophils % (Manual) 0, Band Neutrophils 0, Nucleated Red Blood Cells 2, Platelet Estimate Adequate, Platelet Morphology Normal, Hypochromasia 2+, Anisocytosis 2+ Height (Feet): 6 Height (Inches): 1.00 Weight (Pounds): 169 Assessment/Plan Problem List: (1) Sepsis ICD Codes: A41.9 - Sepsis, unspecified organism SNOMED: 47116904 (2) Anemia ICD Codes: D64.9 - Anemia, unspecified SNOMED: 141688647 (3) Altered level of consciousness ICD Codes: R40.4 - Transient alteration of awareness SNOMED: 9305803 (4) AMS (altered mental status) ICD Codes: R41.82 - Altered mental status, unspecified SNOMED: 161501966 (5) Fever ICD Codes: R50.9 - Fever, unspecified SNOMED: 166933596 Status: progressing Assessment/Plan: anemia is slightly improved leukocytosis reviewed chrt and labs prn oxygen support afebrile Veronica Pal MD Jun 10, 2020 21:08
[2020-06-10] MEDS: Doxycycline Monohydrate 100mg ORAL SCH (21:45)
[2020-06-10] MEDS: Vancomycin 500 MG in NS 110 ML IVPB SCH (21:46)
[2020-06-11] VITALS: BP 106/54
[2020-06-11 04:00] VITALS: BP 103/51
[2020-06-11] MEDS: Levothyroxine 125mcg tab ORAL SCH (05:50)
--- NOTE | 2020-06-11 06:31 | Hematology/Onc Progress Note ---
Assessment/Plan Assessment/Plan Assessment and Recs # Stage IV colon cancer -- I talked with him 06/09 and he is aware of diagnosis but does not want any treatment --> aware of risks and detriment of not getting treatmet for a disease that has potentially 24-30month survival --> is aware of above, cea 28 --> at this time, hold off on rx per patient wishes, is on hospice # Indeterminate bilateral pleural-based nodules measuring up to 1.9 cm in the right lower lobe. --> may be related to above malignancy --> hold off significant workup # Anemia likely due to gi bleed v from neoplasm --> anemia panel order prn-->WITH IRON DEFICIENCY ==> ON IV IRON --> transfuse as needed --> hgb 6.6-->7.9-->7.5 # Leukocytosis likely due to infection --> ABX per id vanc/ceftr/doxy # Altered level of consciousness --> r.o underlying infection --> ct brain noted --> neuro recs # Questionable infiltrate rll, with Fever -> r/o infection --> abx # Elev ddimer --> duplex neg, as is cta # Dvt ppx scds Appreciate consultation and dw RN Subjective Constitutional: Denies: no symptoms, chills, fever, malaise, weakness, other HEENT: Denies: no symptoms, eye pain, blurred vision, tearing, double vision, ear pain, ear discharge, nose pain, nose congestion, throat pain, throat swelling, mouth pain, mouth swelling, other Cardiovascular: Denies: no symptoms, chest pain, edema, irregular heart rate, lightheadedness, palpitations, syncope, other Gastrointestinal/Abdominal: Denies: no symptoms, abdomen distended, abdominal pain, black stools, tarry stools, blood in stool, constipated, diarrhea, difficulty swallowing, nausea, poor appetite, poor fluid intake, rectal b leeding, vomiting, other Genitourinary: Denies: no symptoms, burning, discharge, frequency, flank pain, hematuria, incontinence, pain, urgency, other Neurologic/Psychiatric: Denies: no symptoms, anxiety, depressed, emotional problems, headache, numbness, paresthesia, pre-existing deficit, seizure, tingling, tremors, weakness, other Endocrine: Denies: no symptoms, excessive sweating, flushing, intolerance to cold, intolerance to heat, increased hunger, increased thirst, increased urine, unexplained weight gain, unexplained weight loss, other Hematologic/Lymphatic: Denies: no symptoms, anemia, easy bleeding, easy bruising, adenopathy, other Allergies: Coded Allergies: No Known Allergies (Unverified , 06/08/20) Subjective 06/10 meds noted, no bleeding, labs reviewed, no night sweats, cbc pending 06/11 labs reviewed, no bleeding, no night sweats, cea is elevated, on abx Objective Objective Current Medications Medications (Trade) Dose Ordered Sig/Urvashi Route PRN Reason Start Time Stop Time Status Last Admin Dose Admin Acetaminophen (Tylenol) 500 mg Q4H PRN ORAL Mild Pain (Pain Scale 1-3) 06/10/20 17:45 07/08/20 23:44 Amiodarone HCl (Cordarone) 400 mg EVERY 12 HOURS ORAL 06/10/20 09:00 09/08/20 08:59 06/10/20 21:46 Ceftriaxone Sodium 1 gm/ Dextrose 55 ml @ 110 mls/hr Q24H IVPB 06/09/20 15:00 06/16/20 14:59 06/10/20 14:39 Doxycycline Monohydrate (Doxycycline Monohydrate) 100 mg EVERY 12 HOURS ORAL 06/10/20 21:00 06/17/20 20:59 06/10/20 21:45 Levothyroxine Sodium (Synthroid) 125 mcg DAILY@0630 ORAL 06/09/20 06:30 07/09/20 06:29 06/11/20 05:50 Metoprolol Tartrate (Lopressor) 25 mg Q12HR ORAL 06/10/20 09:00 09/08/20 08:59 06/10/20 21:45 Vancomycin HCl (Vanco pharmacy to dose) 1 ea DAILY PRN MISC Per rx protocol 06/10/20 19:45 07/10/20 19:44 Vancomycin HCl 500 mg/Sodium Chloride 110 ml @ 110 mls/hr Q12HR@1000,2200 IVPB 06/10/20 22:00 06/15/20 21:59 06/10/20 21:46 Last 24 Hour Vital Signs Date Time Temp Pulse Resp B/P (MAP) Pulse Ox O2 Delivery O2 Flow Rate FiO2 06/11/20 04:00 76 06/11/20 04:00 98.1 76 19 103/51 (68) 98 06/11/20 00:00 98.4 72 19 106/54 (71) 97 06/11/20 00:00 82 06/10/20 21:45 78 125/62 06/10/20 21:00 Room Air 06/10/20 20:00 91 06/10/20 20:00 97.5 78 20 122/53 (76) 100 06/10/20 16:00 97.5 59 21 121/59 (79) 99 06/10/20 16:00 62 06/10/20 12:00 98.2 72 18 133/83 (100) 98 06/10/20 12:00 82 06/10/20 10:02 61 130/67 06/10/20 09:00 Room Air 06/10/20 08:00 98.1 70 19 103/61 (75) 98 06/10/20 08:00 134 06/10/20 04:00 105 06/10/20 04:00 98.1 105 16 117/71 (86) 99 06/10/20 02:38 163 06/10/20 00:00 97.9 96 18 133/80 (97) 100 06/10/20 00:00 100 06/09/20 21:00 Room Air 06/09/20 20:00 98.1 100 20 135/72 (93) 100 06/09/20 20:00 100 06/09/20 16:00 82 06/09/20 16:00 97.0 77 20 125/60 (81) 99 06/09/20 12:00 97.3 81 18 127/79 (95) 99 06/09/20 12:00 Room Air 06/09/20 12:00 94 06/09/20 08:53 133 06/09/20 08:00 Room Air 06/09/20 08:00 95 06/09/20 08:00 97.2 70 18 129/70 (89) 99 Intake and Output 06/10/20 06/11/20 19:00 07:00 Intake Total 140 ml Output Total 1200 ml Balance -1060 ml Intake Oral 140 ml Output Urine Total 1200 ml # Voids 3 Labs Test 06/08/20 15:00 06/08/20 16:25 06/09/20 03:48 06/10/20 16:30 White Blood Count 17.4 K/UL (4.8-10.8) 11.8 K/UL (4.8-10.8) 14.8 K/UL (4.8-10.8) Red Blood Count 3.59 M/UL (4.70-6.10) 4.00 M/UL (4.70-6.10) 3.85 M/UL (4.70-6.10) Hemoglobin 6.6 G/DL (14.2-18.0) 7.9 G/DL (14.2-18.0) 7.5 G/DL (14.2-18.0) Hematocrit 24.3 % (42.0-52.0) 28.1 % (42.0-52.0) 25.0 % (42.0-52.0) Mean Corpuscular Volume 68 FL (80-99) 70 FL (80-99) 65 FL (80-99) Mean Corpuscular Hemoglobin 18.4 PG (27.0-31.0) 19.9 PG (27.0-31.0) 19.5 PG (27.0-31.0) Mean Corpuscular Hemoglobin Concent 27.1 G/DL (32.0-36.0) 28.3 G/DL (32.0-36.0) 30.0 G/DL (32.0-36.0) Red Cell Distribution Width 15.9 % (11.6-14.8) 18.5 % (11.6-14.8) 20.2 % (11.6-14.8) Platelet Count 396 K/UL (150-450) 374 K/UL (150-450) 386 K/UL (150-450) Mean Platelet Volume 5.0 FL (6.5-10.1) 5.0 FL (6.5-10.1) 5.6 FL (6.5-10.1) Neutrophils (%) (Auto) % (45.0-75.0) % (45.0-75.0) % (45.0-75.0) Lymphocytes (%) (Auto) % (20.0-45.0) % (20.0-45.0) % (20.0-45.0) Monocytes (%) (Auto) % (1.0-10.0) % (1.0-10.0) % (1.0-10.0) Eosinophils (%) (Auto) % (0.0-3.0) % (0.0-3.0) % (0.0-3.0) Basophils (%) (Auto) % (0.0-2.0) % (0.0-2.0) % (0.0-2.0) Differential Total Cells Counted 100 100 100 Neutrophils % (Manual) 83 % (45-75) 71 % (45-75) 74 % (45-75) Lymphocytes % (Manual) 9 % (20-45) 17 % (20-45) 16 % (20-45) Monocytes % (Manual) 6 % (1-10) 11 % (1-10) 9 % (1-10) Eosinophils % (Manual) 1 % (0-3) 1 % (0-3) 1 % (0-3) Basophils % (Manual) 0 % (0-2) 0 % (0-2) 0 % (0-2) Metamyelocytes % 1 % (0-0) Band Neutrophils 0 % (0-8) 0 % (0-8) 0 % (0-8) Platelet Estimate Adequate Adequate Adequate Platelet Morphology Normal Normal Normal Hypochromasia 3+ 2+ 2+ Anisocytosis 1+ 2+ 2+ Microcytosis 1+ 1+ Prothrombin Time 11.6 SEC (9.30-11.50) Prothromb Time International Ratio 1.1 (0.9-1.1) Activated Partial Thromboplast Time 19 SEC (23-33) D-Dimer 1.71 mg/L FEU (0.00-0.49) Sodium Level 130 MMOL/L (136-145) 133 MMOL/L (136-145) Potassium Level 4.2 MMOL/L (3.5-5.1) 3.5 MMOL/L (3.5-5.1) Chloride Level 99 MMOL/L (98-107) 101 MMOL/L (98-107) Carbon Dioxide Level 22 MMOL/L (21-32) 26 MMOL/L (21-32) Anion Gap 9 mmol/L (5-15) 6 mmol/L (5-15) Blood Urea Nitrogen 11 mg/dL (7-18) 12 mg/dL (7-18) Creatinine 1.1 MG/DL (0.55-1.30) 0.9 MG/DL (0.55-1.30) Estimat Glomerular Filtration Rate > 60 mL/min (>60) > 60 mL/min (>60) Glucose Level 135 MG/DL (74-106) 136 MG/DL (74-106) Lactic Acid Level 2.50 mmol/L (0.4-2.0) 2.20 mmol/L (0.66-2.22) Calcium Level 7.7 MG/DL (8.5-10.1) 7.6 MG/DL (8.5-10.1) Phosphorus Level 2.5 MG/DL (2.5-4.9) Magnesium Level 2.0 MG/DL (1.8-2.4) Ferritin 7 NG/ML (8-388) Total Bilirubin 1.0 MG/DL (0.2-1.0) 0.7 MG/DL (0.2-1.0) Aspartate Amino Transf (AST/SGOT) 17 U/L (15-37) 50 U/L (15-37) Alanine Aminotransferase (ALT/SGPT) 14 U/L (12-78) 29 U/L (12-78) Alkaline Phosphatase 108 U/L (46-116) 107 U/L (46-116) Lactate Dehydrogenase 163 U/L (81-234) Total Creatine Kinase 50 U/L (26-308) Creatine Kinase MB 2.2 NG/ML (0.0-3.6) Creatine Kinase MB Relative Index 4.4 Troponin I 0.011 ng/mL (0.000-0.056) 0.085 ng/mL (0.000-0.056) C-Reactive Protein, Quantitative 3.5 mg/dL (0.00-0.90) Pro-B-Type Natriuretic Peptide 565 pg/mL (0-125) 928 pg/mL (0-125) Total Protein 6.6 G/DL (6.4-8.2) 6.3 G/DL (6.4-8.2) Albumin 2.4 G/DL (3.4-5.0) 2.2 G/DL (3.4-5.0) Globulin 4.2 g/dL 4.1 g/dL Albumin/Globulin Ratio 0.6 (1.0-2.7) 0.5 (1.0-2.7) Lipase 85 U/L (73-393) Serum Alcohol < 3 mg/dL Urine Color Yellow Urine Appearance Slightly cloudy Urine pH 6.5 (4.5-8.0) Urine Specific [place] 1.010 (1.005-1.035) Urine Protein 1+ (NEGATIVE) Urine Glucose (UA) Negative (NEGATIVE) Urine Ketones Negative (NEGATIVE) Urine Blood 3+ (NEGATIVE) Urine Nitrite Negative (NEGATIVE) Urine Bilirubin Negative (NEGATIVE) Urine Urobilinogen Normal MG/DL (0.0-1.0) Urine Leukocyte Esterase 1+ (NEGATIVE) Urine RBC 2-4 /HPF (0 - 0) Urine WBC 2-4 /HPF (0 - 0) Urine Squamous Epithelial Cells None /LPF (NONE/OCC) Urine Bacteria Few /HPF (NONE) Urine Opiates Screen Negative (NEGATIVE) Urine Barbiturates Screen Negative (NEGATIVE) Phencyclidine (PCP) Screen Negative (NEGATIVE) Urine Amphetamines Screen Negative (NEGATIVE) Urine Benzodiazepines Screen Negative (NEGATIVE) Urine Cocaine Screen Negative (NEGATIVE) Urine Marijuana (THC) Screen Negative (NEGATIVE) Polychromasia 1+ Carcinoembryonic Antigen 28.4 ng/mL (0.0-4.7) Thyroid Stimulating Hormone (TSH) < 0.010 uiU/mL (0.358-3.740) Free Thyroxine 1.51 NG/DL (0.76-1.46) Nucleated Red Blood Cells 2 /100 WBC Micro Microbiology Date/Time Source Procedure Growth Status 06/10/20 12:16 Neck Gram Stain - Final Resulted 06/10/20 12:16 Neck Wound Culture Pending Resulted Height (Feet): 6 Height (Inches): 1.00 Weight (Pounds): 169 Objective Physical Exam General: Awake, confused, oriented to self HEENT: NC/AT. EOMI. dry mucous membranes Cardiovascular: RRR. S1 and S2 normal. No murmur appreciated Resp: Normal work of breathing. No cough, wheezing or crackles appreciated Abdomen: Abdomen is soft, nondistended. Nontender Skin: Intact. Bruising over the left shoulder, appears old. Blistering over the left ear consistent with a sunburn MSK: Normal tone and bulk. Moving all extremities. No obvious deformity. Neuro: Awake, oriented x1, moving all extremities Froilan Estrada MD Jun 11, 2020 06:31
[2020-06-11 07:44] LABS: HEMATOCRIT 27.2 % (42.0-52.0); HEMOGLOBIN 7.7 G/DL (14.2-18.0); MEAN CORPUSCULAR VOLUME 71 FL (80-99); PLATELET COUNT 375 K/UL (150-450); RED BLOOD COUNT 3.86 M/UL (4.70-6.10); RED CELL DISTRIBUTION WIDTH 19.4 % (11.6-14.8); WHITE BLOOD COUNT 13.8 K/UL (4.8-10.8)
[2020-06-11 08:00] VITALS: BP 107/50
[2020-06-11 08:20] LABS: ANION GAP 8 mmol/L (5-15); BLOOD UREA NITROGEN 14 mg/dL (7-18); CALCIUM 7.7 MG/DL (8.5-10.1); CARBON DIOXIDE 25 MMOL/L (21-32); CHLORIDE 101 MMOL/L (98-107); CREATININE 0.8 MG/DL (0.55-1.30); POTASSIUM 3.5 MMOL/L (3.5-5.1); SODIUM 134 MMOL/L (136-145)
[2020-06-11] MEDS: Doxycycline Monohydrate 100mg ORAL SCH (09:14)
[2020-06-11] MEDS: Vancomycin 500 MG in NS 110 ML IVPB SCH ×2 (09:14→22:12)
[2020-06-11] MEDS: Amiodarone 200mg tab ORAL SCH ×2 (09:20→21:48)
[2020-06-11 09:21] LABS: % IRON SATURATION 2 % (15-50); IRON 5 ug/dL (50-175); TOTAL IRON BINDING CAPACITY 253 ug/dL (250-450)
--- NOTE | 2020-06-11 11:00 | Cardiac Electrophysiology PN ---
Assessment/Plan Assessment/Plan 1. Hypotension, likely due to profound anemia. Better after blood transfusion and on on IV antibiotic. 2. Atrial fib with RVR. Increased Lopressor to 25 bid and added Amiodarone 400 po bid Still in and out of atrial fib today 3. Anemia with Hb 6.6 and Stage IV colon cancer . He is aware of diagnosis but does not want any treatment Never had colon surgery.FU Dr Ewing 4. NSTEMI with elevated troponin and Nonspecific ST-T wave abnormality. Could be due to demand ischemia in view of Hb 6.6. No CP. On Toprol DW RN Subjective Subjective Alert in NAD.No CP or SOB. Was in atrial fib with RVR and Lopressor increased to 25 bid and Amiodarone added Objective Last 24 Hour Vital Signs Date Time Temp Pulse Resp B/P (MAP) Pulse Ox O2 Delivery O2 Flow Rate FiO2 06/11/20 09:00 Room Air 06/11/20 09:00 60 107/50 06/11/20 08:00 74 06/11/20 08:00 97.7 64 19 107/50 (69) 100 06/11/20 04:00 76 06/11/20 04:00 98.1 76 19 103/51 (68) 98 06/11/20 00:00 98.4 72 19 106/54 (71) 97 06/11/20 00:00 82 06/10/20 21:45 78 125/62 06/10/20 21:00 Room Air 06/10/20 20:00 91 06/10/20 20:00 97.5 78 20 122/53 (76) 100 06/10/20 16:00 97.5 59 21 121/59 (79) 99 06/10/20 16:00 62 06/10/20 12:00 98.2 72 18 133/83 (100) 98 06/10/20 12:00 82 Intake and Output 06/10/20 06/11/20 18:59 06:59 Intake Total 140 ml Output Total 1200 ml Balance -1060 ml Intake Oral 140 ml Output Urine Total 1200 ml # Voids 6 # Bowel Movements 1 Laboratory Tests Test 06/10/20 16:30 06/11/20 06:52 White Blood Count 14.8 K/UL (4.8-10.8) H 13.8 K/UL (4.8-10.8) H Red Blood Count 3.85 M/UL (4.70-6.10) L 3.86 M/UL (4.70-6.10) L Hemoglobin 7.5 G/DL (14.2-18.0) L 7.7 G/DL (14.2-18.0) L Hematocrit 25.0 % (42.0-52.0) L 27.2 % (42.0-52.0) L Mean Corpuscular Volume 65 FL (80-99) L 71 FL (80-99) #L Mean Corpuscular Hemoglobin 19.5 PG (27.0-31.0) L 20.0 PG (27.0-31.0) L Mean Corpuscular Hemoglobin Concent 30.0 G/DL (32.0-36.0) L 28.4 G/DL (32.0-36.0) L Red Cell Distribution Width 20.2 % (11.6-14.8) H 19.4 % (11.6-14.8) H Platelet Count 386 K/UL (150-450) 375 K/UL (150-450) Mean Platelet Volume 5.6 FL (6.5-10.1) L 5.3 FL (6.5-10.1) L Neutrophils (%) (Auto) % (45.0-75.0) % (45.0-75.0) Lymphocytes (%) (Auto) % (20.0-45.0) % (20.0-45.0) Monocytes (%) (Auto) % (1.0-10.0) % (1.0-10.0) Eosinophils (%) (Auto) % (0.0-3.0) % (0.0-3.0) Basophils (%) (Auto) % (0.0-2.0) % (0.0-2.0) Differential Total Cells Counted 100 100 Neutrophils % (Manual) 74 % (45-75) 68 % (45-75) Lymphocytes % (Manual) 16 % (20-45) L 21 % (20-45) Monocytes % (Manual) 9 % (1-10) 9 % (1-10) Eosinophils % (Manual) 1 % (0-3) 2 % (0-3) Basophils % (Manual) 0 % (0-2) 0 % (0-2) Band Neutrophils 0 % (0-8) 0 % (0-8) Nucleated Red Blood Cells 2 /100 WBC Platelet Estimate Adequate Adequate Platelet Morphology Normal Normal Hypochromasia 2+ 3+ Anisocytosis 2+ 3+ Microcytosis 1+ Macrocytosis Occasional Ovalocytes Occasional Schistocytes Occasional Sodium Level 134 MMOL/L (136-145) L Potassium Level 3.5 MMOL/L (3.5-5.1) Chloride Level 101 MMOL/L (98-107) Carbon Dioxide Level 25 MMOL/L (21-32) Anion Gap 8 mmol/L (5-15) Blood Urea Nitrogen 14 mg/dL (7-18) Creatinine 0.8 MG/DL (0.55-1.30) Estimat Glomerular Filtration Rate > 60 mL/min (>60) Glucose Level 88 MG/DL (74-106) Calcium Level 7.7 MG/DL (8.5-10.1) L Iron Level 5 ug/dL (50-175) L Total Iron Binding Capacity 253 ug/dL (250-450) Percent Iron Saturation 2 % (15-50) L Unsaturated Iron Binding 248 ug/dL (112-346) Microbiology Date/Time Source Procedure Growth Status 06/10/20 12:16 Neck Gram Stain - Final Resulted 06/10/20 12:16 Neck Wound Culture Pending Resulted 06/08/20 15:10 Blood Blood Culture - Preliminary Resulted 06/08/20 15:00 Nasopharynx SARS-CoV-2 RdRp Gene Assay - Final Complete 06/08/20 15:00 Blood Blood Culture - Preliminary NO GROWTH AFTER 48 HOURS Resulted Objective HEAD AND NECK: Showed no JVD. LUNGS: Clear. CARDIOVASCULAR: Shows regular S1 and S2 with no gallop or murmur. ABDOMEN: Soft. EXTREMITIES: No pitting edema. Frank Gilbert MD Jun 11, 2020 11:00
--- NOTE | 2020-06-11 11:06 | Pulmonology Progress Note ---
Subjective ROS Limited/Unobtainable: Yes Interval Events: None new Constitutional: Reports: no symptoms HEENT: Repors: no symptoms Respiratory: Reports: no symptoms Cardiovascular: Reports: no symptoms Gastrointestinal/Abdominal: Reports: no symptoms Genitourinary: Reports: no symptoms Skin: Reports: other - blisters of neck Allergies: Coded Allergies: No Known Allergies (Unverified , 06/08/20) Objective Last 24 Hour Vital Signs Date Time Temp Pulse Resp B/P (MAP) Pulse Ox O2 Delivery O2 Flow Rate FiO2 06/11/20 09:00 Room Air 06/11/20 09:00 60 107/50 06/11/20 08:00 74 06/11/20 08:00 97.7 64 19 107/50 (69) 100 06/11/20 04:00 76 06/11/20 04:00 98.1 76 19 103/51 (68) 98 06/11/20 00:00 98.4 72 19 106/54 (71) 97 06/11/20 00:00 82 06/10/20 21:45 78 125/62 06/10/20 21:00 Room Air 06/10/20 20:00 91 06/10/20 20:00 97.5 78 20 122/53 (76) 100 06/10/20 16:00 97.5 59 21 121/59 (79) 99 06/10/20 16:00 62 06/10/20 12:00 98.2 72 18 133/83 (100) 98 06/10/20 12:00 82 Intake and Output 06/10/20 06/11/20 19:00 07:00 Intake Total 140 ml Output Total 1200 ml Balance -1060 ml Intake Oral 140 ml Output Urine Total 1200 ml # Voids 6 # Bowel Movements 1 General Appearance: no acute distress HEENT: normocephalic Respiratory: chest wall non-tender, lungs clear Cardiovascular: normal peripheral pulses, normal rate Abdomen: normal bowel sounds Microbiology Date/Time Source Procedure Growth Status 06/10/20 12:16 Neck Gram Stain - Final Resulted 06/10/20 12:16 Neck Wound Culture Pending Resulted 06/08/20 15:10 Blood Blood Culture - Preliminary Resulted 06/08/20 15:00 Nasopharynx SARS-CoV-2 RdRp Gene Assay - Final Complete 06/08/20 15:00 Blood Blood Culture - Preliminary NO GROWTH AFTER 48 HOURS Resulted Laboratory Tests 06/10/20 16:30: White Blood Count 14.8H, Red Blood Count 3.85L, Hemoglobin 7.5L, Hematocrit 25.0L, Mean Corpuscular Volume 65L, Mean Corpuscular Hemoglobin 19.5L, Mean Corpuscular Hemoglobin Concent 30.0L, Red Cell Distribution Width 20.2H, Platelet Count 386, Mean Platelet Volume 5.6L, Neutrophils (%) (Auto) , Lymphocytes (%) (Auto) , Monocytes (%) (Auto) , Eosinophils (%) (Auto) , Ba sophils (%) (Auto) , Differential Total Cells Counted 100, Neutrophils % (Manual) 74, Lymphocytes % (Manual) 16L, Monocytes % (Manual) 9, Eosinophils % (Manual) 1, Basophils % (Manual) 0, Band Neutrophils 0, Nucleated Red Blood Cells 2, Platelet Estimate Adequate, Platelet Morphology Normal, Hypochromasia 2+, Anisocytosis 2+ 06/11/20 06:52: White Blood Count 13.8H, Red Blood Count 3.86L, Hemoglobin 7.7L, Hematocrit 27.2L, Mean Corpuscular Volume 71#L, Mean Corpuscular Hemoglobin 20.0L, Mean Corpuscular Hemoglobin Concent 28.4L, Red Cell Distribution Width 19.4H, Platelet Count 375, Mean Platelet Volume 5.3L, Neutrophils (%) (Auto) , Lymphocytes (%) (Auto) , Monocytes (%) (Auto) , Eosinophils (%) (Auto) , Basophils (%) (Auto) , Differential Total Cells Counted 100, Neutrophils % (Manual) 68, Lymphocytes % (Manual) 21, Monocytes % (Manual) 9, Eosinophils % (Manual) 2, Basophils % (Manual) 0, Band Neutrophils 0, Platelet Estimate Adequate, Platelet Morphology Normal, Hypochromasia 3+, Anisocytosis 3+, Microcytosis 1+, Macrocytosis Occasional, Ovalocytes Occasional, Schistocytes Occasional, Sodium Level 134L, Potassium Level 3.5, Chloride Level 101, Carbon Dioxide Level 25, Anion Gap 8, Blood Urea Nitrogen 14, Creatinine 0.8, Estimat Glomerular Filtration Rate > 60, Glucose Level 88, Calcium Level 7.7L, Iron Level 5L, Total Iron Binding Capacity 253, Percent Iron Saturation 2L, Unsaturated Iron Binding 248 Current Medications Medications (Trade) Dose Ordered Sig/Urvashi Route PRN Reason Start Time Stop Time Status Last Admin Dose Admin Acetaminophen (Tylenol) 500 mg Q4H PRN ORAL Mild Pain (Pain Scale 1-3) 06/10/20 17:45 07/08/20 23:44 Amiodarone HCl (Cordarone) 400 mg EVERY 12 HOURS ORAL 06/10/20 09:00 09/08/20 08:59 06/11/20 09:20 Ceftriaxone Sodium 1 gm/ Dextrose 55 ml @ 110 mls/hr Q24H IVPB 06/09/20 15:00 06/16/20 14:59 06/10/20 14:39 Doxycycline Monohydrate (Doxycycline Monohydrate) 100 mg EVERY 12 HOURS ORAL 06/10/20 21:00 06/17/20 20:59 06/11/20 09:14 Iron Sucrose 100 mg/Sodium Chloride 60 ml @ 240 mls/hr BEDTIME IVPB 06/11/20 21:00 06/15/20 21:14 Levothyroxine Sodium (Synthroid) 125 mcg DAILY@0630 ORAL 06/09/20 06:30 07/09/20 06:29 06/11/20 05:50 Metoprolol Tartrate (Lopressor) 25 mg Q12HR ORAL 06/10/20 09:00 09/08/20 08:59 06/10/20 21:45 Vancomycin HCl (Vanco pharmacy to dose) 1 ea DAILY PRN MISC Per rx protocol 06/10/20 19:45 07/10/20 19:44 Vancomycin HCl 500 mg/Sodium Chloride 110 ml @ 110 mls/hr Q12HR@1000,2200 IVPB 06/10/20 22:00 06/15/20 21:59 06/11/20 09:14 Assessment/Plan Assessment/Plan IMPRESSION: 1. Anemia. 2. Altered mental status. 3. Colon carcinoma. 4. Leukocytosis. 5. Emphysema. 6. Pulmonary nodules. DISCUSSION: The patient is doing well at this time post transfusion. Saturating well on RA Agree with broad spectrum antibiotics. Currently, his pulmonary nodules do not require a workup and as per the Fleischner guidelines He will need serial imaging studies. These nodules may represent either benign nodules or metastasis from his stage IV colon cancer. I will follow. Gustabo Costello Omar Syed MD Jun 11, 2020 11:06
[2020-06-11 12:00] VITALS: BP 109/49
--- NOTE | 2020-06-11 12:35 | Infectious Diseases Prog Note ---
Assessment/Plan Assessment/Plan IMPRESSION: Bacteremia Sepsis or systemic inflammatory response syndrome Neck blisters, ? cellulitis Leukocytosis, Resolved lactic acidosis. Severe anemia. Colon cancer stage IV. Emphysema Pulmonary nodule. Hypothyroidism. RECOMMENDATION: Continue ceftriaxone & IV Vancomycin Discontinue PO Doxycycline Will f/u cultures Subjective ROS Limited/Unobtainable: No Constitutional: Reports: no symptoms Respiratory: Reports: no symptoms Gastrointestinal/Abdominal: Reports: no symptoms Genitourinary: Reports: no symptoms Allergies: Coded Allergies: No Known Allergies (Unverified , 06/08/20) Objective Last 24 Hour Vital Signs Date Time Temp Pulse Resp B/P (MAP) Pulse Ox O2 Delivery O2 Flow Rate FiO2 06/11/20 09:00 Room Air 06/11/20 09:00 60 107/50 06/11/20 08:00 74 06/11/20 08:00 97.7 64 19 107/50 (69) 100 06/11/20 04:00 76 06/11/20 04:00 98.1 76 19 103/51 (68) 98 06/11/20 00:00 98.4 72 19 106/54 (71) 97 06/11/20 00:00 82 06/10/20 21:45 78 125/62 06/10/20 21:00 Room Air 06/10/20 20:00 91 06/10/20 20:00 97.5 78 20 122/53 (76) 100 06/10/20 16:00 97.5 59 21 121/59 (79) 99 06/10/20 16:00 62 Height (Feet): 6 Height (Inches): 1.00 Weight (Pounds): 169 HEENT: mucous membranes moist Respiratory/Chest: lungs clear Cardiovascular: normal rate Abdomen: soft, non tender Extremities: no edema Skin: other - emptied blister on back of neck near hair line Neurologic/Psychiatric: alert, responsive Musculoskeletal: other - kyhposis Microbiology Date/Time Source Procedure Growth Status 06/10/20 12:16 Neck Gram Stain - Final Resulted 06/10/20 12:16 Neck Wound Culture - Preliminary NO GROWTH AFTER 24 HOURS Resulted 06/08/20 15:10 Blood Blood Culture - Preliminary Resulted 06/08/20 15:00 Nasopharynx SARS-CoV-2 RdRp Gene Assay - Final Complete 06/08/20 15:00 Blood Blood Culture - Preliminary NO GROWTH AFTER 48 HOURS Resulted Laboratory Tests Test 06/10/20 16:30 06/11/20 06:52 White Blood Count 14.8 K/UL (4.8-10.8) H 13.8 K/UL (4.8-10.8) H Red Blood Count 3.85 M/UL (4.70-6.10) L 3.86 M/UL (4.70-6.10) L Hemoglobin 7.5 G/DL (14.2-18.0) L 7.7 G/DL (14.2-18.0) L Hematocrit 25.0 % (42.0-52.0) L 27.2 % (42.0-52.0) L Mean Corpuscular Volume 65 FL (80-99) L 71 FL (80-99) #L Mean Corpuscular Hemoglobin 19.5 PG (27.0-31.0) L 20.0 PG (27.0-31.0) L Mean Corpuscular Hemoglobin Concent 30.0 G/DL (32.0-36.0) L 28.4 G/DL (32.0-36.0) L Red Cell Distribution Width 20.2 % (11.6-14.8) H 19.4 % (11.6-14.8) H Platelet Count 386 K/UL (150-450) 375 K/UL (150-450) Mean Platelet Volume 5.6 FL (6.5-10.1) L 5.3 FL (6.5-10.1) L Neutrophils (%) (Auto) % (45.0-75.0) % (45.0-75.0) Lymphocytes (%) (Auto) % (20.0-45.0) % (20.0-45.0) Monocytes (%) (Auto) % (1.0-10.0) % (1.0-10.0) Eosinophils (%) (Auto) % (0.0-3.0) % (0.0-3.0) Basophils (%) (Auto) % (0.0-2.0) % (0.0-2.0) Differential Total Cells Counted 100 100 Neutrophils % (Manual) 74 % (45-75) 68 % (45-75) Lymphocytes % (Manual) 16 % (20-45) L 21 % (20-45) Monocytes % (Manual) 9 % (1-10) 9 % (1-10) Eosinophils % (Manual) 1 % (0-3) 2 % (0-3) Basophils % (Manual) 0 % (0-2) 0 % (0-2) Band Neutrophils 0 % (0-8) 0 % (0-8) Nucleated Red Blood Cells 2 /100 WBC Platelet Estimate Adequate Adequate Platelet Morphology Normal Normal Hypochromasia 2+ 3+ Anisocytosis 2+ 3+ Microcytosis 1+ Macrocytosis Occasional Ovalocytes Occasional Schistocytes Occasional Sodium Level 134 MMOL/L (136-145) L Potassium Level 3.5 MMOL/L (3.5-5.1) Chloride Level 101 MMOL/L (98-107) Carbon Dioxide Level 25 MMOL/L (21-32) Anion Gap 8 mmol/L (5-15) Blood Urea Nitrogen 14 mg/dL (7-18) Creatinine 0.8 MG/DL (0.55-1.30) Estimat Glomerular Filtration Rate > 60 mL/min (>60) Glucose Level 88 MG/DL (74-106) Calcium Level 7.7 MG/DL (8.5-10.1) L Iron Level 5 ug/dL (50-175) L Total Iron Binding Capacity 253 ug/dL (250-450) Percent Iron Saturation 2 % (15-50) L Unsaturated Iron Binding 248 ug/dL (112-346) Current Medications Medications (Trade) Dose Ordered Sig/Urvashi Route PRN Reason Start Time Stop Time Status Last Admin Dose Admin Acetaminophen (Tylenol) 500 mg Q4H PRN ORAL Mild Pain (Pain Scale 1-3) 06/10/20 17:45 07/08/20 23:44 Amiodarone HCl (Cordarone) 400 mg EVERY 12 HOURS ORAL 06/10/20 09:00 09/08/20 08:59 06/11/20 09:20 Ceftriaxone Sodium 1 gm/ Dextrose 55 ml @ 110 mls/hr Q24H IVPB 06/09/20 15:00 06/16/20 14:59 06/10/20 14:39 Doxycycline Monohydrate (Doxycycline Monohydrate) 100 mg EVERY 12 HOURS ORAL 06/10/20 21:00 06/17/20 20:59 06/11/20 09:14 Iron Sucrose 100 mg/Sodium Chloride 60 ml @ 240 mls/hr BEDTIME IVPB 06/11/20 21:00 06/15/20 21:14 Levothyroxine Sodium (Synthroid) 125 mcg DAILY@0630 ORAL 06/09/20 06:30 07/09/20 06:29 06/11/20 05:50 Metoprolol Tartrate (Lopressor) 25 mg Q12HR ORAL 06/10/20 09:00 09/08/20 08:59 06/10/20 21:45 Vancomycin HCl ([facility] pharmacy to dose) 1 ea DAILY PRN MISC Per rx protocol 06/10/20 19:45 07/10/20 19:44 Vancomycin HCl 500 mg/Sodium Chloride 110 ml @ 110 mls/hr Q12HR@1000,2200 IVPB 06/10/20 22:00 06/15/20 21:59 06/11/20 09:14 Eddie Monsivais MD Jun 11, 2020 12:35
[2020-06-11] MEDS: cefTRIAXone 1 GM in D5W 55 ML IVPB SCH (15:09)
[2020-06-11 16:00] VITALS: BP 108/49
[2020-06-11] MEDS ORDERED: CLONAZEPAM2 MG PO (17:35)
[2020-06-11] MEDS ORDERED: ZOFRAN ODT8 MG ORAL (18:09)
[2020-06-11] MEDS ORDERED: FLORADIX PO (18:09)
[2020-06-11] MEDS ORDERED: ASCORBIC ACID MC (18:09)
[2020-06-11] MEDS ORDERED: VITAMIN B COMP1 EAC5 PO (18:09)
[2020-06-11] MEDS ORDERED: HYDROMORPHO1 MG/1 M2 PO (18:09)
--- NOTE | 2020-06-11 19:17 | General Progress Note ---
Subjective ROS Limited/Unobtainable: Yes Allergies: Coded Allergies: No Known Allergies (Unverified , 06/08/20) Objective Last 24 Hour Vital Signs Date Time Temp Pulse Resp B/P (MAP) Pulse Ox O2 Delivery O2 Flow Rate FiO2 06/11/20 16:00 71 06/11/20 16:00 98.7 56 21 108/49 (68) 98 06/11/20 12:00 68 06/11/20 12:00 97.6 56 18 109/49 (69) 98 06/11/20 12:00 97.6 56 19 109/49 (69) 98 06/11/20 09:00 Room Air 06/11/20 09:00 60 107/50 06/11/20 08:00 74 06/11/20 08:00 97.7 64 19 107/50 (69) 100 06/11/20 04:00 76 06/11/20 04:00 98.1 76 19 103/51 (68) 98 06/11/20 00:00 98.4 72 19 106/54 (71) 97 06/11/20 00:00 82 06/10/20 21:45 78 125/62 06/10/20 21:00 Room Air 06/10/20 20:00 91 06/10/20 20:00 97.5 78 20 122/53 (76) 100 Intake and Output 06/10/20 06/11/20 19:00 07:00 Intake Total 140 ml Output Total 1200 ml Balance -1060 ml Intake Oral 140 ml Output Urine Total 1200 ml # Voids 6 # Bowel Movements 1 Laboratory Tests 06/11/20 06:52: White Blood Count 13.8H, Red Blood Count 3.86L, Hemoglobin 7.7L, Hematocrit 27.2L, Mean Corpuscular Volume 71#L, Mean Corpuscular Hemoglobin 20.0L, Mean Corpuscular Hemoglobin Concent 28.4L, Red Cell Distribution Width 19.4H, Platelet Count 375, Mean Platelet Volume 5.3L, Neutrophils (%) (Auto) , Lymphocytes (%) (Auto) , Monocytes (%) (Auto) , Eosinophils (%) (Auto) , Basophils (%) (Auto) , Differential Total Cells Counted 100, Neutrophils % (Manual) 68, Lymphocytes % (Manual) 21, Monocytes % (Manual) 9, Eosinophils % (Manual) 2, Basophils % (Manual) 0, Band Neutrophils 0, Platelet Estimate Adequate, Platelet Morphology Normal, Hypochromasia 3+, Anisocytosis 3+, Microcytosis 1+, Macrocytosis Occasional, Ovalocytes Occasional, Schistocytes O ccasional, Sodium Level 134L, Potassium Level 3.5, Chloride Level 101, Carbon Dioxide Level 25, Anion Gap 8, Blood Urea Nitrogen 14, Creatinine 0.8, Estimat Glomerular Filtration Rate > 60, Glucose Level 88, Calcium Level 7.7L, Iron Level 5L, Total Iron Binding Capacity 253, Percent Iron Saturation 2L, Unsaturated Iron Binding 248 Height (Feet): 6 Height (Inches): 1.00 Weight (Pounds): 169 Assessment/Plan Problem List: (1) Sepsis ICD Codes: A41.9 - Sepsis, unspecified organism SNOMED: 91958111 (2) Anemia ICD Codes: D64.9 - Anemia, unspecified SNOMED: 427811387 (3) Altered level of consciousness ICD Codes: R40.4 - Transient alteration of awareness SNOMED: 4732782 (4) AMS (altered mental status) ICD Codes: R41.82 - Altered mental status, unspecified SNOMED: 617662313 (5) Fever ICD Codes: R50.9 - Fever, unspecified SNOMED: 272605489 Status: progressing Assessment/Plan: anemia is slightly improved cancer dpoa wants pt to be dc in am discussed josue borrego she wants pt to go home under hospice abx per id Veronica Glaser MD Jun 11, 2020 19:17
[2020-06-11 20:00] VITALS: BP 117/59
[2020-06-11] MEDS ORDERED: Iron Sucrose 100 MG in NS 55 ML IVPB SCH (21:00)
[2020-06-12] VITALS: BP 123/57
[2020-06-12 04:00] VITALS: BP 112/53
[2020-06-12] MEDS: Levothyroxine 125mcg tab ORAL SCH (06:03)
--- NOTE | 2020-06-12 06:31 | Hematology/Onc Progress Note ---
Assessment/Plan Assessment/Plan Assessment and Recs # Stage IV colon cancer -- I talked with him 06/09 and he is aware of diagnosis but does not want any treatment --> aware of risks and detriment of not getting treatmet for a disease that has potentially 24-30month survival --> is aware of above, cea 28 --> at this time, hold off on rx per patient wishes, is on hospice # Indeterminate bilateral pleural-based nodules measuring up to 1.9 cm in the right lower lobe. --> may be related to above malignancy --> hold off significant workup # Anemia likely due to gi bleed v from neoplasm --> anemia panel order prn-->WITH IRON DEFICIENCY ==> ON IV IRON --> transfuse as needed --> hgb 6.6-->7.9-->7.5->7.7 # Leukocytosis likely due to infection --> ABX per id vanc/ceftr/doxy --> wbc 13.8 # Altered level of consciousness --> r.o underlying infection --> ct brain noted --> neuro recs # Questionable infiltrate rll, with Fever -> r/o infection --> abx # Elev ddimer --> duplex neg, as is cta # Dvt ppx scds Appreciate consultation and dw RN Subjective Constitutional: Denies: no symptoms, chills, fever, malaise, weakness, other HEENT: Denies: no symptoms, eye pain, blurred vision, tearing, double vision, ear pain, ear discharge, nose pain, nose congestion, throat pain, throat swelling, mouth pain, mouth swelling, other Cardiovascular: Denies: no symptoms, chest pain, edema, irregular heart rate, lightheadedness, palpitations, syncope, other Respiratory: Denies: no symptoms, cough, shortness of breath, SOB with excerti on, SOB at rest, sputum, wheezing, other Gastrointestinal/Abdominal: Denies: no symptoms, abdomen distended, abdominal pain, black stools, tarry stools, blood in stool, constipated, diarrhea, difficulty swallowing, nausea, poor appetite, poor fluid intake, rectal bleeding, vomiting, other Genitourinary: Denies: no symptoms, burning, discharge, frequency, flank pain, hematuria, incontinence, pain, urgency, other Neurologic/Psychiatric: Denies: no symptoms, anxiety, depressed, emotional problems, headache, numbness, paresthesia, pre-existing deficit, seizure, tingling, tremors, weakness, other Endocrine: Denies: no symptoms, excessive sweating, flushing, intolerance to cold, intolerance to heat, increased hunger, increased thirst, increased urine, unexplained weight gain, unexplained weight loss, other Allergies: Coded Allergies: No Known Allergies (Unverified , 06/08/20) Subjective 06/10 meds noted, no bleeding, labs reviewed, no night sweats, cbc pending 06/11 labs reviewed, no bleeding, no night sweats, cea is elevated, on abx 06/12 asleep, no events, labs are pending, no bleeding, meds reviewed Objective Objective Current Medications Medications (Trade) Dose Ordered Sig/Urvashi Route PRN Reason Start Time Stop Time Status Last Admin Dose Admin Acetaminophen (Tylenol) 500 mg Q4H PRN ORAL Mild Pain (Pain Scale 1-3) 06/10/20 17:45 07/08/20 23:44 Amiodarone HCl (Cordarone) 400 mg EVERY 12 HOURS ORAL 06/10/20 09:00 09/08/20 08:59 06/11/20 21:48 Ceftriaxone Sodium 1 gm/ Dextrose 55 ml @ 110 mls/hr Q24H IVPB 06/09/20 15:00 06/16/20 14:59 06/11/20 15:09 Iron Sucrose 100 mg/Sodium Chloride 60 ml @ 240 mls/hr BEDTIME IVPB 06/11/20 21:00 06/15/20 21:14 06/11/20 21:49 Levothyroxine Sodium (Synthroid) 125 mcg DAILY@0630 ORAL 06/09/20 06:30 07/09/20 06:29 06/12/20 06:03 Metoprolol Tartrate (Lopressor) 25 mg Q12HR ORAL 06/10/20 09:00 09/08/20 08:59 06/11/20 21:48 Vancomycin HCl ([facility] pharmacy to dose) 1 ea DAILY PRN MISC Per rx protocol 06/10/20 19:45 07/10/20 19:44 Vancomycin HCl 500 mg/Sodium Chloride 110 ml @ 110 mls/hr Q12HR@1000,2200 IVPB 06/10/20 22:00 06/15/20 21:59 06/11/20 22:12 Last 24 Hour Vital Signs Date Time Temp Pulse Resp B/P (MAP) Pulse Ox O2 Delivery O2 Flow Rate FiO2 06/12/20 04:00 78 06/12/20 04:00 97.9 64 17 112/53 (72) 97 06/12/20 00:00 97.9 59 19 123/57 (79) 96 06/12/20 00:00 58 06/11/20 21:48 91 121/62 06/11/20 21:00 Room Air 06/11/20 20:00 79 06/11/20 20:00 97.9 79 20 117/59 (78) 99 06/11/20 16:00 71 06/11/20 16:00 98.7 56 21 108/49 (68) 98 06/11/20 12:00 68 06/11/20 12:00 97.6 56 18 109/49 (69) 98 06/11/20 12:00 97.6 56 19 109/49 (69) 98 06/11/20 09:00 Room Air 06/11/20 09:00 60 107/50 06/11/20 08:00 74 06/11/20 08:00 97.7 64 19 107/50 (69) 100 06/11/20 04:00 76 06/11/20 04:00 98.1 76 19 103/51 (68) 98 06/11/20 00:00 98.4 72 19 106/54 (71) 97 06/11/20 00:00 82 06/10/20 21:45 78 125/62 06/10/20 21:00 Room Air 06/10/20 20:00 91 06/10/20 20:00 97.5 78 20 122/53 (76) 100 06/10/20 16:00 97.5 59 21 121/59 (79) 99 06/10/20 16:00 62 06/10/20 12:00 98.2 72 18 133/83 (100) 98 06/10/20 12:00 82 06/10/20 10:02 61 130/67 06/10/20 09:00 Room Air 06/10/20 08:00 98.1 70 19 103/61 (75) 98 06/10/20 08:00 134 Intake and Output 06/11/20 06/12/20 19:00 07:00 Intake Total 285 ml Output Total 1400 ml Balance -1115 ml Intake Oral 120 ml IV Total 165 ml Output Urine Total 1400 ml # Voids 3 # Bowel Movements 1 Labs Test 06/10/20 16:30 06/11/20 06:52 White Blood Count 14.8 K/UL (4.8-10.8) 13.8 K/UL (4.8-10.8) Red Blood Count 3.85 M/UL (4.70-6.10) 3.86 M/UL (4.70-6.10) Hemoglobin 7.5 G/DL (14.2-18.0) 7.7 G/DL (14.2-18.0) Hematocrit 25.0 % (42.0-52.0) 27.2 % (42.0-52.0) Mean Corpuscular Volume 65 FL (80-99) 71 FL (80-99) Mean Corpuscular Hemoglobin 19.5 PG (27.0-31.0) 20.0 PG (27.0-31.0) Mean Corpuscular Hemoglobin Concent 30.0 G/DL (32.0-36.0) 28.4 G/DL (32.0-36.0) Red Cell Distribution Width 20.2 % (11.6-14.8) 19.4 % (11.6-14.8) Platelet Count 386 K/UL (150-450) 375 K/UL (150-450) Mean Platelet Volume 5.6 FL (6.5-10.1) 5.3 FL (6.5-10.1) Neutrophils (%) (Auto) % (45.0-75.0) % (45.0-75.0) Lymphocytes (%) (Auto) % (20.0-45.0) % (20.0-45.0) Monocytes (%) (Auto) % (1.0-10.0) % (1.0-10.0) Eosinophils (%) (Auto) % (0.0-3.0) % (0.0-3.0) Basophils (%) (Auto) % (0.0-2.0) % (0.0-2.0) Differential Total Cells Counted 100 100 Neutrophils % (Manual) 74 % (45-75) 68 % (45-75) Lymphocytes % (Manual) 16 % (20-45) 21 % (20-45) Monocytes % (Manual) 9 % (1-10) 9 % (1-10) Eosinophils % (Manual) 1 % (0-3) 2 % (0-3) Basophils % (Manual) 0 % (0-2) 0 % (0-2) Band Neutrophils 0 % (0-8) 0 % (0-8) Nucleated Red Blood Cells 2 /100 WBC Platelet Estimate Adequate Adequate Platelet Morphology Normal Normal Hypochromasia 2+ 3+ Anisocytosis 2+ 3+ Microcytosis 1+ Macrocytosis Occasional Ovalocytes Occasional Schistocytes Occasional Sodium Level 134 MMOL/L (136-145) Potassium Level 3.5 MMOL/L (3.5-5.1) Chloride Level 101 MMOL/L (98-107) Carbon Dioxide Level 25 MMOL/L (21-32) Anion Gap 8 mmol/L (5-15) Blood Urea Nitrogen 14 mg/dL (7-18) Creatinine 0.8 MG/DL (0.55-1.30) Estimat Glomerular Filtration Rate > 60 mL/min (>60) Glucose Level 88 MG/DL (74-106) Calcium Level 7.7 MG/DL (8.5-10.1) Iron Level 5 ug/dL (50-175) Total Iron Binding Capacity 253 ug/dL (250-450) Percent Iron Saturation 2 % (15-50) Unsaturated Iron Binding 248 ug/dL (112-346) Height (Feet): 6 Height (Inches): 1.00 Weight (Pounds): 169 Objective Physical Exam General: Awake, confused, oriented to self HEENT: NC/AT. EOMI. dry mucous membranes Cardiovascular: RRR. S1 and S2 normal. No murmur appreciated Resp: Normal work of breathing. No cough, wheezing or crackles appreciated Abdomen: Abdomen is soft, nondistended. Nontender Skin: Intact. Bruising over the left shoulder, appears old. Blistering over the left ear consistent with a sunburn MSK: Normal tone and bulk. Moving all extremities. No obvious deformity. Neuro: Awake, oriented x1, moving all extremities Froilan Estrada MD Jun 12, 2020 06:31
[2020-06-12 08:00] VITALS: BP 89/53
[2020-06-12 09:00] VITALS: BP 89/53
[2020-06-12 09:25] LABS: HEMATOCRIT 26.1 % (42.0-52.0); HEMOGLOBIN 7.8 G/DL (14.2-18.0); MEAN CORPUSCULAR VOLUME 68 FL (80-99); PLATELET COUNT 310 K/UL (150-450); RED BLOOD COUNT 3.84 M/UL (4.70-6.10); RED CELL DISTRIBUTION WIDTH 22.1 % (11.6-14.8); WHITE BLOOD COUNT 10.9 K/UL (4.8-10.8)
[2020-06-12] MEDS: Amiodarone 200mg tab ORAL SCH (09:39)
[2020-06-12] MEDS: Vancomycin 500 MG in NS 110 ML IVPB SCH (09:40)
[2020-06-12 09:45] LABS: ANION GAP 8 mmol/L (5-15); BLOOD UREA NITROGEN 14 mg/dL (7-18); CALCIUM 7.5 MG/DL (8.5-10.1); CARBON DIOXIDE 23 MMOL/L (21-32); CHLORIDE 104 MMOL/L (98-107); POTASSIUM 3.5 MMOL/L (3.5-5.1); SODIUM 135 MMOL/L (136-145)
--- NOTE | 2020-06-12 10:33 | Infectious Diseases Prog Note ---
Assessment/Plan Assessment/Plan IMPRESSION: Sepsis or systemic inflammatory response syndrome Neck blisters, ? cellulitis culture: negative Leukocytosis, resolving Resolved lactic acidosis. Severe anemia. Colon cancer stage IV. Emphysema Pulmonary nodule. Hypothyroidism. Positive blood culture likely contamination RECOMMENDATION: Discontinue ceftriaxone & IV Vancomycin PO Levaquin X 4 days Going to hospice today Subjective ROS Limited/Unobtainable: Yes Constitutional: Denies: fever Allergies: Coded Allergies: No Known Allergies (Unverified , 06/08/20) Objective Last 24 Hour Vital Signs Date Time Temp Pulse Resp B/P (MAP) Pulse Ox O2 Delivery O2 Flow Rate FiO2 06/12/20 09:00 66 89/53 06/12/20 08:00 97.7 66 17 89/53 (65) 100 06/12/20 08:00 67 06/12/20 04:00 78 06/12/20 04:00 97.9 64 17 112/53 (72) 97 06/12/20 00:00 97.9 59 19 123/57 (79) 96 06/12/20 00:00 58 06/11/20 21:48 91 121/62 06/11/20 21:00 Room Air 06/11/20 20:00 79 06/11/20 20:00 97.9 79 20 117/59 (78) 99 06/11/20 16:00 71 06/11/20 16:00 98.7 56 21 108/49 (68) 98 06/11/20 12:00 68 06/11/20 12:00 97.6 56 18 109/49 (69) 98 06/11/20 12:00 97.6 56 19 109/49 (69) 98 Height (Feet): 6 Height (Inches): 1.00 Weight (Pounds): 169 General Appearance: no acute distress HEENT: mucous membranes moist Respiratory/Chest: other - oxygen by nasal cannula Cardiovascular: normal rate Abdomen: soft, non tender Extremities: no edema Skin: other - superficial ulcer on back of neck Neurologic/Psychiatric: other - sleeping Microbiology Date/Time Source Procedure Growth Status 06/10/20 12:16 Neck Gram Stain - Final Resulted 06/10/20 12:16 Neck Wound Culture - Preliminary NO GROWTH AFTER 24 HOURS Resulted Laboratory Tests Test 06/12/20 09:10 White Blood Count 10.9 K/UL (4.8-10.8) H Red Blood Count 3.84 M/UL (4.70-6.10) L Hemoglobin 7.8 G/DL (14.2-18.0) L Hematocrit 26.1 % (42.0-52.0) L Mean Corpuscular Volume 68 FL (80-99) L Mean Corpuscular Hemoglobin 20.4 PG (27.0-31.0) L Mean Corpuscular Hemoglobin Concent 30.0 G/DL (32.0-36.0) L Red Cell Distribution Width 22.1 % (11.6-14.8) H Platelet Count 310 K/UL (150-450) Mean Platelet Volume 5.2 FL (6.5-10.1) L Neutrophils (%) (Auto) % (45.0-75.0) Lymphocytes (%) (Auto) % (20.0-45.0) Monocytes (%) (Auto) % (1.0-10.0) Eosinophils (%) (Auto) % (0.0-3.0) Basophils (%) (Auto) % (0.0-2.0) Neutrophils % (Manual) Pending Lymphocytes % (Manual) Pending Platelet Estimate Pending Platelet Morphology Pending Sodium Level 135 MMOL/L (136-145) L Potassium Level 3.5 MMOL/L (3.5-5.1) Chloride Level 104 MMOL/L (98-107) Carbon Dioxide Level 23 MMOL/L (21-32) Anion Gap 8 mmol/L (5-15) Blood Urea Nitrogen 14 mg/dL (7-18) Creatinine 1.0 MG/DL (0.55-1.30) Estimat Glomerular Filtration Rate > 60 mL/min (>60) Glucose Level 156 MG/DL (74-106) H Calcium Level 7.5 MG/DL (8.5-10.1) L Vancomycin Level Trough 1.3 ug/mL (5.0-12.0) L Current Medications Medications (Trade) Dose Ordered Sig/Urvashi Route PRN Reason Start Time Stop Time Status Last Admin Dose Admin Acetaminophen (Tylenol) 500 mg Q4H PRN ORAL Mild Pain (Pain Scale 1-3) 06/10/20 17:45 07/08/20 23:44 Amiodarone HCl (Cordarone) 400 mg EVERY 12 HOURS ORAL 06/10/20 09:00 09/08/20 08:59 06/12/20 09:39 Ceftriaxone Sodium 1 gm/ Dextrose 55 ml @ 110 mls/hr Q24H IVPB 06/09/20 15:00 06/16/20 14:59 06/11/20 15:09 Iron Sucrose 100 mg/Sodium Chloride 60 ml @ 240 mls/hr BEDTIME IVPB 06/11/20 21:00 06/15/20 21:14 06/11/20 21:49 Levothyroxine Sodium (Synthroid) 125 mcg DAILY@0630 ORAL 06/09/20 06:30 07/09/20 06:29 06/12/20 06:03 Metoprolol Tartrate (Lopressor) 25 mg Q12HR ORAL 06/10/20 09:00 09/08/20 08:59 06/11/20 21:48 Vancomycin HCl ([facility] pharmacy to dose) 1 ea DAILY PRN MISC Per rx protocol 06/10/20 19:45 07/10/20 19:44 Vancomycin HCl 500 mg/Sodium Chloride 110 ml @ 110 mls/hr Q12HR@1000,2200 IVPB 06/10/20 22:00 06/15/20 21:59 06/12/20 09:40 Eddie Monsivais MD Jun 12, 2020 10:33
--- NOTE | 2020-06-12 10:56 | Pulmonology Progress Note ---
Subjective ROS Limited/Unobtainable: Yes Interval Events: None new Constitutional: Denies: fever HEENT: Repors: no symptoms Respiratory: Reports: no symptoms Cardiovascular: Reports: no symptoms Gastrointestinal/Abdominal: Reports: no symptoms Genitourinary: Reports: no symptoms Skin: Reports: other - blisters of neck Allergies: Coded Allergies: No Known Allergies (Unverified , 06/08/20) Objective Last 24 Hour Vital Signs Date Time Temp Pulse Resp B/P (MAP) Pulse Ox O2 Delivery O2 Flow Rate FiO2 06/12/20 09:00 66 89/53 06/12/20 08:00 97.7 66 17 89/53 (65) 100 06/12/20 08:00 67 06/12/20 04:00 78 06/12/20 04:00 97.9 64 17 112/53 (72) 97 06/12/20 00:00 97.9 59 19 123/57 (79) 96 06/12/20 00:00 58 06/11/20 21:48 91 121/62 06/11/20 21:00 Room Air 06/11/20 20:00 79 06/11/20 20:00 97.9 79 20 117/59 (78) 99 06/11/20 16:00 71 06/11/20 16:00 98.7 56 21 108/49 (68) 98 06/11/20 12:00 68 06/11/20 12:00 97.6 56 18 109/49 (69) 98 06/11/20 12:00 97.6 56 19 109/49 (69) 98 Intake and Output 06/11/20 06/12/20 19:00 07:00 Intake Total 285 ml 700 ml Output Total 1400 ml Balance -1115 ml 700 ml Intake Oral 120 ml 700 ml IV Total 165 ml Output Urine Total 1400 ml # Voids 3 2 # Bowel Movements 2 General Appearance: no acute distress HEENT: normocephalic Respiratory: chest wall non-tender, lungs clear Cardiovascular: normal peripheral pulses, normal rate Abdomen: normal bowel sounds Microbiology Date/Time Source Procedure Growth Status 06/10/20 12:16 Neck Gram Stain - Final Resulted 06/10/20 12:16 Neck Wound Culture - Preliminary NO GROWTH AFTER 24 HOURS Resulted Laboratory Tests 06/12/20 09:10: White Blood Count 10.9H, Red Blood Count 3.84L, Hemoglobin 7.8L, Hematocrit 26.1L, Mean Corpuscular Volume 68L, Mean Corpuscular Hemoglobin 20.4L, Mean Corpuscular Hemoglobin Concent 30.0L, Red Cell Distribution Width 22.1H, Platelet Count 310, Mean Platelet Volume 5.2L, Neutrophils (%) (Auto) , Lymphocytes (%) (Auto) , Monocytes (%) (Auto) , Eosinophils (%) (Auto) , Basophils (%) (Auto) , Neutrophils % (Manual) [Pending], Lymphocytes % (Manual) [Pending], Platelet Estimate [Pending], Platelet Morphology [Pending], Sodium Level 135L, Potassium Level 3.5, Chloride Level 104, Carbon Dioxide Level 23, Anion Gap 8, Blood Urea Nitrogen 14, Creatinine 1.0, Estimat Glomerular Filtration Rate > 60, Glucose Level 156H, Calcium Level 7.5L, Vancomycin Level Trough 1.3L Current Medications Medications (Trade) Dose Ordered Sig/Urvashi Route PRN Reason Start Time Stop Time Status Last Admin Dose Admin Acetaminophen (Tylenol) 500 mg Q4H PRN ORAL Mild Pain (Pain Scale 1-3) 06/10/20 17:45 07/08/20 23:44 Amiodarone HCl (Cordarone) 400 mg EVERY 12 HOURS ORAL 06/10/20 09:00 09/08/20 08:59 06/12/20 09:39 Iron Sucrose 100 mg/Sodium Chloride 60 ml @ 240 mls/hr BEDTIME IVPB 06/11/20 21:00 06/15/20 21:14 06/11/20 21:49 Levofloxacin (Levaquin) 750 mg DAILY ORAL 06/12/20 10:45 06/19/20 10:44 UNV Levothyroxine Sodium (Synthroid) 125 mcg DAILY@0630 ORAL 06/09/20 06:30 07/09/20 06:29 06/12/20 06:03 Metoprolol Tartrate (Lopressor) 25 mg Q12HR ORAL 06/10/20 09:00 09/08/20 08:59 06/11/20 21:48 Assessment/Plan Assessment/Plan IMPRESSION: 1. Anemia. 2. Altered mental status. 3. Colon carcinoma. 4. Leukocytosis. 5. Emphysema. 6. Pulmonary nodules. DISCUSSION: The patient is doing well at this time post transfusion. Saturating well on RA Agree with broad spectrum antibiotics. Currently, his pulmonary nodules do not require a workup and as per the Fleischner guidelines He will need serial imaging studies. These nodules may represent either benign nodules or metastasis from his stage IV colon cancer. I will follow. Cleared for discharge. Mukund Velazquez M.D. Mukund Velazquez MD Jun 12, 2020 10:56
[2020-06-12] MEDS ORDERED: LEVOFLOXACIN500 MG ORAL (10:59)
[2020-06-12] MEDS ORDERED: Tubing IV Secondary IV ONE (11:29)
[2020-06-12] MEDS ORDERED: Levofloxacin 750mg tab ORAL SCH (12:00)
--- NOTE | 2020-06-12 12:57 | General Progress Note ---
Subjective ROS Limited/Unobtainable: Yes Allergies: Coded Allergies: No Known Allergies (Unverified , 06/08/20) Objective Last 24 Hour Vital Signs Date Time Temp Pulse Resp B/P (MAP) Pulse Ox O2 Delivery O2 Flow Rate FiO2 06/12/20 09:00 Room Air 06/12/20 09:00 66 89/53 06/12/20 08:00 97.7 66 17 89/53 (65) 100 06/12/20 08:00 67 06/12/20 04:00 78 06/12/20 04:00 97.9 64 17 112/53 (72) 97 06/12/20 00:00 97.9 59 19 123/57 (79) 96 06/12/20 00:00 58 06/11/20 21:48 91 121/62 06/11/20 21:00 Room Air 06/11/20 20:00 79 06/11/20 20:00 97.9 79 20 117/59 (78) 99 06/11/20 16:00 71 06/11/20 16:00 98.7 56 21 108/49 (68) 98 Intake and Output 06/11/20 06/12/20 19:00 07:00 Intake Total 285 ml 700 ml Output Total 1400 ml Balance -1115 ml 700 ml Intake Oral 120 ml 700 ml IV Total 165 ml Output Urine Total 1400 ml # Voids 3 2 # Bowel Movements 2 Laboratory Tests 06/12/20 09:10: White Blood Count 10.9H, Red Blood Count 3.84L, Hemoglobin 7.8L, Hematocrit 26.1L, Mean Corpuscular Volume 68L, Mean Corpuscular Hemoglobin 20.4L, Mean Corpuscular Hemoglobin Concent 30.0L, Red Cell Distribution Width 22.1H, Platelet Count 310, Mean Platelet Volume 5.2L, Neutrophils (%) (Auto) , Lymphocytes (%) (Auto) , Monocytes (%) (Auto) , Eosinophils (%) (Auto) , Basophils (%) (Auto) , Differential Total Cells Counted 100, Neutrophils % (Manual) 76H, Lymphocytes % (Manual) 13L, Monocytes % (Manual) 9, Eosinophils % (Manual) 2, Basophils % (Manual) 0, Band Neutrophils 0, Platelet Estimate Adequate, Platelet Morphology Normal, Hypochromasia 1+, Poikilocytosis 1+, Anisocytosis 2+, Microcytosis 1+, Sodium Level 135L, Potassium Level 3.5, Chloride Level 104, Carbon Dioxide Level 23, Anion Gap 8, Blood Urea Nitrogen 14, Creatinine 1.0, Estimat Glomerular Filtration Rate > 60, Glucose Level 156H, Calcium Level 7.5L, Vancomycin Level Trough 1.3L Height (Feet): 6 Height (Inches): 1.00 Weight (Pounds): 169 Assessment/Plan Problem List: (1) Sepsis ICD Codes: A41.9 - Sepsis, unspecified organism SNOMED: 55677955 (2) Anemia ICD Codes: D64.9 - Anemia, unspecified SNOMED: 805920635 (3) Altered level of consciousness ICD Codes: R40.4 - Transient alteration of awareness SNOMED: 5950798 (4) AMS (altered mental status) ICD Codes: R41.82 - Altered mental status, unspecified SNOMED: 765947476 (5) Fever ICD Codes: R50.9 - Fever, unspecified SNOMED: 667188299 Status: progressing Assessment/Plan: dc per daughter request see dc summary for details Veronica Pal MD Jun 12, 2020 12:57
--- NOTE | 2020-06-12 16:53 | Cardiac Electrophysiology PN ---
Assessment/Plan Assessment/Plan 1. Hypotension, likely due to profound anemia. Better after blood transfusion and on on IV antibiotic. 2. Atrial fib with RVR. Better on Lopressor to 25 bid and Amiodarone 400 po bid Still in and out of atrial fib 3. Anemia with Hb 6.6 and Stage IV colon cancer . He is aware of diagnosis but does not want any treatment Never had colon surgery.FU Dr Ewing 4. NSTEMI with elevated troponin and Nonspecific ST-T wave abnormality. Could be due to demand ischemia in view of Hb 6.6. No CP. On Toprol DW RN Subjective Subjective Alert in NAD.No CP or SOB. Was in atrial fib with RVR and Lopressor increased to 25 bid and Amiodarone added HR better today. DC pending Objective Last 24 Hour Vital Signs Date Time Temp Pulse Resp B/P (MAP) Pulse Ox O2 Delivery O2 Flow Rate FiO2 06/12/20 09:00 Room Air 06/12/20 09:00 66 89/53 06/12/20 08:00 97.7 66 17 89/53 (65) 100 06/12/20 08:00 67 06/12/20 04:00 78 06/12/20 04:00 97.9 64 17 112/53 (72) 97 06/12/20 00:00 97.9 59 19 123/57 (79) 96 06/12/20 00:00 58 06/11/20 21:48 91 121/62 06/11/20 21:00 Room Air 06/11/20 20:00 79 06/11/20 20:00 97.9 79 20 117/59 (78) 99 Intake and Output 06/11/20 06/12/20 19:00 07:00 Intake Total 285 ml 700 ml Output Total 1400 ml Balance -1115 ml 700 ml Intake Oral 120 ml 700 ml IV Total 165 ml Output Urine Total 1400 ml # Voids 3 2 # Bowel Movements 2 Laboratory Tests Test 06/12/20 09:10 White Blood Count 10.9 K/UL (4.8-10.8) H Red Blood Count 3.84 M/UL (4.70-6.10) L Hemoglobin 7.8 G/DL (14.2-18.0) L Hematocrit 26.1 % (42.0-52.0) L Mean Corpuscular Volume 68 FL (80-99) L Mean Corpuscular Hemoglobin 20.4 PG (27.0-31.0) L Mean Corpuscular Hemoglobin Concent 30.0 G/DL (32.0-36.0) L Red Cell Distribution Width 22.1 % (11.6-14.8) H Platelet Count 310 K/UL (150-450) Mean Platelet Volume 5.2 FL (6.5-10.1) L Neutrophils (%) (Auto) % (45.0-75.0) Lymphocytes (%) (Auto) % (20.0-45.0) Monocytes (%) (Auto) % (1.0-10.0) Eosinophils (%) (Auto) % (0.0-3.0) Basophils (%) (Auto) % (0.0-2.0) Differential Total Cells Counted 100 Neutrophils % (Manual) 76 % (45-75) H Lymphocytes % (Manual) 13 % (20-45) L Monocytes % (Manual) 9 % (1-10) Eosinophils % (Manual) 2 % (0-3) Basophils % (Manual) 0 % (0-2) Band Neutrophils 0 % (0-8) Platelet Estimate Adequate Platelet Morphology Normal Hypochromasia 1+ Poikilocytosis 1+ Anisocytosis 2+ Microcytosis 1+ Sodium Level 135 MMOL/L (136-145) L Potassium Level 3.5 MMOL/L (3.5-5.1) Chloride Level 104 MMOL/L (98-107) Carbon Dioxide Level 23 MMOL/L (21-32) Anion Gap 8 mmol/L (5-15) Blood Urea Nitrogen 14 mg/dL (7-18) Creatinine 1.0 MG/DL (0.55-1.30) Estimat Glomerular Filtration Rate > 60 mL/min (>60) Glucose Level 156 MG/DL (74-106) H Calcium Level 7.5 MG/DL (8.5-10.1) L Vancomycin Level Trough 1.3 ug/mL (5.0-12.0) L Microbiology Date/Time Source Procedure Growth Status 06/10/20 12:16 Neck Gram Stain - Final Resulted 06/10/20 12:16 Neck Wound Culture - Preliminary NO GROWTH AFTER 48 HOURS Resulted Objective HEAD AND NECK: Showed no JVD. LUNGS: Clear. CARDIOVASCULAR: Shows regular S1 and S2 with no gallop or murmur. ABDOMEN: Soft. EXTREMITIES: No pitting edema. Frank Gilbert MD Jun 12, 2020 16:53
--- NOTE | 2020-06-13 16:06 | Cardiology Report ---
APPROVED REPORT EXAM: Two-dimensional and M-mode echocardiogram with Doppler and color Doppler. INDICATION Syncope M-Mode DIMENSIONS IVSd0.9 (0.7-1.1cm)Left Atrium (MM)3.6 (1.6-4.0cm) LVDd4.5 (3.5-5.6cm)Aortic Root3.2 (2.0-3.7cm) PWd0.9 (0.7-1.1cm)Aortic Cusp Exc.1.9 (1.5-2.0cm) IVSs1.8 cmEPSS0.6 (>1.0cm) LVDs2.7 (2.5-4.0cm) PWs1.6 cm Other Information Technically limited study due to poor parasternal acoustical windows and pt's position. <Conclusion> Normal left ventricular chamber size, systolic function and wall motion to extent visualized. Left ventricular ejection fraction grossly estimated to be 55 %. No left ventricular hypertrophy. No evidence of pericardial effusion. Left atrial size at upper limits of normal. Right cardiac chamber sizes are within normal limits. Focal aortic valve sclerosis with adequate cusp excursion. Thickened mitral valve leaflets with normal excursion. Mitral annulus and aortic root calcification. Normal tricuspid valve structure. IVC unobtainable. A color flow and spectral Doppler study was performed and revealed: Trace aortic regurgitation. Trace mitral regurgitation. Mitral diastolic velocities suggest reduced left ventricular relaxation c/w mild LV diastolic dysfunction (Grade I ). No tricuspid regurgitation. No right ventricular systolic pressure calculated.
--- NOTE | 2020-06-13 16:59 | Cardiology Report ---
APPROVED REPORT EKG Measurement Heart [id number] <Conclusion> Wandering pacemaker Otherwise normal ECG
--- NOTE | 2020-06-16 11:21 | Discharge Summary ---
Discharge Summary Discharge Summary _ DATE OF ADMISSION: 06/08/2020 DATE OF DISCHARGE: 06/12/2020 DISCHARGED BY: Dr Pal REASON FOR ADMISSION: 84 years old male with past medical history of stage IV colon cancer, anemia, was sent for evaluation due to altered mental status. Patient apparently was lying in the backyard , and family had difficulty arousing him. Patient received fluid by counter attendant and woke up Upon evaluation vital signs revealed hypotension , blood pressure 85 systolic; pulse oximetry was stable on room air , and patient was afebrile. Laboratory work-up revealed leukocytosis WBC 17.4 , hemoglobin 6.6 , hematocrit 24.3 , platelet count 396. D-dimer 1.71. Sodium 130, chloride 99. Potassium 4.2. Stable renal parameters. Lactic acid 2.5 , repeated 2.2 . Glucose 135 . Ferritin 7 . Stable LFT. LDH 163. Troponin 0.011, pro BNP 565 . EKG revealed tachycardia with heart rate in low 100 with multiply PAC . Albumin 2.4 Urinalysis revealed +1 leukocyte esterase, no evidence of urinary tract infection . Urine toxicology screen was negative. Serum alcohol level less than 3 Chest x-ray revealed possible consolidation right lower lobe. CT of the head revealed no acute intracranial abnormality. No mass. In emergency department patient received fluids , started on empiric antibiotics and admitted for further management. CONSULTANTS: paper bundler Dr. Smith pulmonary Dr. Velazquez ID specialist Dr. Eddie Monsivais scrap handler/oncologist Dr. Estrada [facility] COURSE: Patient admitted to telemetry floor. Patient started on IV fluids and empiric antibiotics. Blood culture revealed staph coagulase negative, likely contaminant as per ID specialist. Wound culture /neck blisters/ revealed no evidence of growth. Patient received 2 units of packed red blood cells while in the hospital . Anemia work-up revealed anemia of iron deficiency; ferritin 7 prior to discharge hemoglobin 7.8, hematocrit 26.1. Patient was on IV Venofer. Echocardiogram demonstrated preserved ejection fraction of 65 to 55%. No evidence of left ventricular hypertrophy no evidence of wall motion abnormality. No left ventricular hypertrophy. Patient initially was hypotensive , most likely due to profound anemia. After blood transfusion and IV fluids, blood pressure improved. Patient started on beta-blockade. Patient developed atrial fibrillation with rapid ventricular response. Rate was controlled with beta-forrest and amiodarone. Patient was spontaneously moving between atrial fibrillation and sinus rhythm. Prior to discharge back to sinus rhythm for the last 24 hours. Second troponin elevated 0.085. EKG showed nonspecific ST-T wave abnormality. Per paper bundler patient likely had NSTEMI due to demand ischemia in view of significant anemia. Patient denied chest pain . Patient was already on beta-forrest therapy. Venous duplex bilateral lower extremity revealed no evidence of acute DVT. CTA of the chest revealed indeterminate bilateral pleural-based nodules measuring up to 1.9 cm in the right lower lobe ; recommend CT chest to repeat in 3 to 6 months. No pulmonary emboli. Supplemental oxygen provided and titrated to keep pulse oximetry above 92%. Pulse oximetry remained stable on room air. Per core blower, pulmonary nodules do not require work-up at this time. However patient will need to have serial imaging studies. These nodules may represent either benign nodules or metastasis from his stage IV colon cancer. Patient was aware of diagnosis of colon cancer stage 4. He never seen a surgeon Patient declined further treatment for colon cancer . Patient decided to go to hospice services. Leukocytosis trending down , prior to discharge 10.9. IV antibiotic stopped. Continue oral antibiotic for additional 4 days as per ID specialist recommendation. Patient clinically stabilized and was ready for discharge FINAL DIAGNOSES: Probably sepsis Colon carcinoma stage IV Altered mental status Emphysema Pulmonary nodules Anemia , status post blood transfusion Anemia probably due to neoplasm Atrial fibrillation with rapid ventricular response Hypertension Sepsis or systemic inflammatory response syndrome Leukocytosis -resolving Lactic acidosis - resolved Hypothyroidism Neck blisters DISCHARGE MEDICATIONS: See Medication Reconciliation list. DISCHARGE INSTRUCTIONS: Patient was discharged home with hospice services I have been assigned to dictate discharge summary for this account. I was not involved in the patient's management. Martina Garcia NP Jun 16, 2020 11:21
== END 2020-06-12 11:30 | disposition home or self-care (01) | DRG 871 ==
LOC: EDBD 14:41 → EMR 15:22 → 2W 15:30 → EDBEDREQSVC 16:21 → EDBEDREQ 16:21 → 2W 21:55 → 2E 06-09 14:25
PROC: 30233N1 Transfusion of Nonautologous Red Blood Cells into Peripheral Vein, Percutaneous Approach (ICD-10-PCS; principal; 2020-06-08)
DX: A41.9 Sepsis, unspecified organism (principal); I21.A1 Myocardial infarction type 2; J18.9 Pneumonia, unspecified organism; C18.9 Malignant neoplasm of colon, unspecified; L03.221 Cellulitis of neck; C78.00 Secondary malignant neoplasm of unspecified lung; D63.0 Anemia in neoplastic disease; I95.9 Hypotension, unspecified; D64.9 Anemia, unspecified; E03.9 Hypothyroidism, unspecified; J43.9 Emphysema, unspecified; I48.91 Unspecified atrial fibrillation; I10 Essential (primary) hypertension; Z87.891 Personal history of nicotine dependence
CPT/HCPCS: 36415; 70450; 71045; 71275; 80048; 80053; 80202; 80307; 81003; 82378; 82550; 82553; 82728; 83540; 83550; 83605; 83615; 83690; 83735; 83880; 84100; 84439; 84443; 84484; 85007; 85025; 85379; 85610; 85730; 86140; 86850; 86900; 86901; 86920; 87040; 87070; 87181; 87205; 93005; 93306; 93970; 96361; 96365; 99285; G0480; J7030; U0002